=== PATIENT | female | born 2005 | race Caucasian/White ===

== ENCOUNTER 2024-06-03 15:39 | Outpatient (CLI) | payer OTHER, SELFPAY ==
[2024-06-03 16:08] LABS: Basophils Percent Auto 0.6 % (0.2-1.2); Eosinophils Percent Auto 0.5 % (0-4.4); Hematocrit 40.4 % (37.0-47.0); Hemoglobin 13.7 g/dL (12.0-15.0); Immature Granulocyte Absolute 0.02 K/mm3 (0.00-0.031); Immature Granulocyte Percent A 0.3 % (0-0.5); Lymphocytes Absolute Auto 2.02 K/mm3 (0.9-3.2); Lymphocytes Percent Auto 30.7 % (18.3-44.2); Mean Corpuscular HGB Conc 33.9 g/dl (32-36); Mean Corpuscular Hemoglobin 29.4 pg (26-34); Mean Corpuscular Volume 86.7 fl (80-100); Monocytes Absolute Auto 0.4 K/mm3 (0.1-0.6); Monocytes Percent Auto 5.8 % (2.6-8.5); Neutrophils Absolute Auto 4.1 K/mm3 (1.3-6.7); Neutrophils Percent Auto 62.1 % (45.5-73.1); Platelet Count Result 246 k/mm3 (150-375); Red Blood Count 4.66 M/mm3 (4.2-5.4); Red Cell Distribution Width 12.9 % (11.5-14.5); White Blood Count 6.6 K/mm3 (4.5-10.0)
[2024-06-03 16:59] LABS: HIV 1/2 Ab P24 Ag Result Negative (Negative)
[2024-06-03 18:15] LABS: Hepatitis B Surface Antigen Negative (Negative); Rubella IgG Antibody 96.4 IU/ML
[2024-06-04 08:14] LABS: Rapid Plasma Reagin Non-Reactive (NonReactive)
[2024-06-05 03:19] LABS: CMV IgG Antibody <0.60 U/mL
== END 2024-06-03 15:40 | disposition home or self-care (01) ==
LOC: ANHLAB 15:40
PROVIDERS: Visit Provider Obstetrics & Gynecology
DX: N94.89 Other specified conditions associated with female genital organs and menstrual cycle (principal)
CPT/HCPCS: 36415; 84702; 85025; 86592; 86644; 86703; 86747; 86762; 86850; 86900; 86901; 87340; G0432

== ENCOUNTER 2024-10-14 12:05 | Outpatient (CLI) | payer OTHER, MEDICAID, SELFPAY ==
--- OUTSIDE RECORDS SUMMARY | 2024-10-14 12:11 | XMS_ITS | Clinical Summary ---
Author Organization [facility] Address [address] [place] [address] Phone Care Team Providers Care [facility] Workers Supervisor Name Role Phone Meghan Cedillo MD Primary Care Provider + Allergies No known active allergies Medications venlafaxine (EFFEXOR) 37.5 mg tablet Take 37.5 mg by mouth 3 times daily. Active Family History Medical History Relation Name Comments No Known Problems Father No Known Problems Mother Relation Name Status Comments Father Mother Social History Tobacco Use Types Packs/Day Years Used Date Smoking Tobacco: Never Adolescent Education Answer Date Record ed Getting School Help Needed Not on file 12/23 Comments Unknown Sex and Gender Information Value Date Recorded Sex Assigned at Not on file Legal Sex Female 6:09 PM CDT Gender Identity Not on file Sexual Orientation Not on file Last Filed Vital Signs Vital Sign Reading Time Taken Comments Blood Pressure 112/70 08/16/2021 9:30 PM CDT Pulse 82 08/16/2021 9:30 PM CDT Temperature 36.9 C (98.4 F) 08/16/2021 9:30 PM CDT Respiratory Rate 17 08/16/2021 9:30 PM CDT Oxygen Saturation 99% 08/16/2021 9:30 PM CDT Inhaled Oxygen Concentration - - Weight 61.3 kg (135 lb 2.3 oz) 08/16/2021 6:19 P M CDT Height - - Body Mass Index - - Plan of Treatment Health Maintenance Due Date Last Done Comments CHLAMYDIA SCREENING (ANNUAL) 11-24 YEARS 02/18/2015 HPV VACCINES (1 - 3-dose series) 02/18/2019 DTAP/TDAP/TD VACCINES (1 - Tdap) 02/18/2023 HEPATITIS B VACCINES (1 of 3 - 19+ 3-dose series) 05/2022 INFLUENZA VACCINE (#1) 2023 Insurance [employer] CHOICE POS II AET[employer] CHOICE POS II Care Teams Cemetery Workers Supervisor Relationship Specialty Start Date End Date Meghan Cedillo MD PCP - General Pediatrics 08/16/21
--- OUTSIDE RECORDS SUMMARY | 2024-10-14 12:11 | XMS_ITS | Data Portability ---
Author Organization [place] [facility]- Address # [address] [facility] [place] [address] Care Team Providers Care Investment Executive Name Role Phone LETI CEDILLO Primary Care Provider [phone] Assessment Encounter Date Assessment Date Assessment LastModified by Organization Details LastModified Time 08/16/2021 08/16/2021 Due to the COVID-19 public health emergency, additional clinical staff time was required to screen this patient and parent(s) for COVID exposure and/or COVID related symptoms. Additional time was also spent sanitizing the exam room after the patient was seen in order to prevent the possible spread of COVID. Not available 08/16/2021 15:19:27 11/04/2021 11/04/2021 Due to the COVID-19 public health emergency, additional clinical staff time was required to screen this patient and parent(s) for COVID exposure and/or COVID related symptoms. Additional time was also spent sanitizing the exam room after the patient was seen in order to prevent the possible spread of COVID. [email or web address] Not available 11/02/2021 14:11:54 03/30/2022 03/30/2022 Due to the COVID-19 public health emergency, additional clinical staff time was required to screen this patient and parent(s) for COVID exposure and/or COVID related symptoms. Additional time was also spent sanitizing the exam room after the patient was seen in order to prevent the possible spread of COVID. Not available 03/30/2022 14:22:07 Plan of Treatment Reminders Order Date Submit Date Provider Last Modified By Organization Details Last Modified Time Details Appointments None recorded. Lab urinalysis, dipstick 2024 025 JACQUELYN [facility], [address], [place], [address], 5 12:48:50 rapid strep group A, throat 2021 022 [email or web address] [facility], [address], [place], [address], 2 15:30:24 urinalysis, dipstick 2021 022 [email or web address] [facility], [address], [place], [address], 16:03:49 Referral None recorded. Procedures None recorded. Surgeries None recorded. Imaging None recorded. Medication Orders venlafaxine 25 mg tablet 2021 022 [email or web address] 3 Not available 5 14:19:48 Patient TargetsNo targets recorded. Patient Instructions Encounter Date Encounter Id Patient Instructions Last Modified By Organization Details Last Modified Time 08/16/2021 [id number] screen for child anxiety-related emotional disorders* [email or web address] Not available 08/16/2021 15:48:59 patient health questionnaire depression assessment* ahauch Not available 08/16/2021 15:48:59 screen for child anxiety-related emotional disorders* ahauch Not available 08/16/2021 15:48:59 Instructions 1. Take medication(s) exactly as prescribed. 2. Never stop taking your medicine on your own--it can lead to serious problems. 3. Strongly consider speaking with a counselor. 4. Tell someone if you have any thoughts of self harm. 5. Contact our office with any concerns. 5. Follow up in month(s). Goals 1. Improved socialization at school, work, and/or with family. 2. Always go to school unless you are truly unable. 3. Always maintain normal sleep time patterns. Not available 08/16/2021 15:19:27 11/04/2021 [id number] anticipatory guidance 16-17 years Not available 11/04/2021 16:03:50 laurita LARA e abuse screening for adolescents* Not available 11/16/2021 14:39:01 patient health questionnaire depression assessment* JACQUELYN Not available 11/06/2021 08:24:15 03/30/2022 [id number] sore throat in teens: care instructions [email or web address] Not available 03/30/2022 15:30:24 06/23/2024 [id number] anticipatory guidance 18-21 years [email or web address] Not available 06/23/2024 12:22:20 patient health questionnaire depression assessment* [email or web address] Not available 06/23/2024 12:22:20 Reason for Referral None Reported. Results Created Date Observation Date Name Description Value Unit Range Abnormal Flag Note LastModifiedBy Organization Detail LastModifiedTime 08/10/1908/09/2021 patie nt healt h quest ionna virgen depre ssion asses sment * SCORE: 24 Not Available [facility] [address] [facility] [address], [place], [address], 08/09/2021 17:28:32 08/10/19 22 08/09/2021 patie nt healt h quest ionna virgen depre ssion asses sment * RECOMMENDATI ONS: DISCUS SED WITH PARENT NEED FOR FOLLOW UP TREATM ENT AND EVALUA TION Not Available [facility] [address] [facility] [address], [place], [address], 08/09/2021 17:28:32 08/10/19 22 08/09/2021 scree n for child anxie ty-re lated emoti onal disor ders* Unknown Analyte 55 Not Available [facility] [address] [facility] [address], [place], [address], 08/09/2021 17:28:33 08/10/19 22 08/09/2021 scree n for child anxie ty-re lated emoti onal disor ders* Unknown Analyte abnorm al Not Available [facility] [address] [facility] [address], [place], [address], 08/09/2021 17:28:33 08/17/19 22 08/16/2021 scree n for child anxie ty-re lated emoti onal disor ders* Unknown Analyte 55 Not Available [facility] [address] [facility] [address], [place], [address], 08/16/2021 15:19:29 08/17/19 22 08/16/2021 scree n for child anxie ty-re lated emoti onal disor ders* Unknown Analyte abnorm al Not Available [facility] [address] [facility] [address], [place], [address], 08/16/2021 15:19:29 08/17/19 22 08/16/2021 scree n for child anxie ty-re lated emoti onal disor ders* Unknown Analyte 7 Not Available [facility] [address] [facility] [address], [place], [address], 08/16/2021 15:19:29 08/17/19 22 08/16/2021 scree n for child anxie ty-re lated emoti onal disor ders* Unknown Analyte normal Not Available [facility] [address] [facility] [address], [place], [address], 08/16/2021 15:19:29 08/17/19 22 08/16/2021 patie nt healt h quest ionna virgen depre ssion asses sment * SCORE: 24 Not Available [facility] [address] [facility] [address], [place], [address], 08/16/2021 15:19:29 08/17/19 22 08/16/2021 patie nt healt h quest ionna virgen depre ssion asses sment * RECOMMENDATI ONS: DISCUS SED WITH PARENT NEED FOR FOLLOW UP TREATM ENT AND EVALUA TION Not Available [facility] [address] [facility] [address], [place], [address], 08/16/2021 15:19:29 11/05/19 22 11/04/2021 urina lysis , dipst ick Specific Rembert >1.030 Not Available [facility] [address] [facility] [address], [place], [address], 11/02/2021 14:11:55 11/05/19 22 11/04/2021 urina lysis , dipst ick pH 6.0 Not Available [facility] [address] [facility] [address], [place], [address], 11/02/2021 14:11:55 11/05/19 22 11/04/2021 urina lysis , dipst ick Leukocytes Negati ve Not Available [facility] [address] [facility] [address], [place], [address], 11/02/2021 14:11:55 11/05/19 22 11/04/2021 urina lysis , dipst ick Nitrite negati ve Not Available [facility] [address] [facility] [address], [place], [address], 11/02/2021 14:11:55 11/05/19 22 11/04/2021 urina lysis , dipst ick Urobilinogen .2 Not Available [facility] [address] [facility] [address], [place], [address], 11/02/2021 14:11:55 11/05/19 22 11/04/2021 urina lysis , dipst ick Protein Negati ve Not Available [facility] [address] [facility] [address], [place], [address], 11/02/2021 14:11:55 11/05/19 22 11/04/2021 urina lysis , dipst ick Blood Negati ve Not Available [facility] [address] [facility] [address], [place], [address], 11/02/2021 14:11:55 11/05/19 22 11/04/2021 urina lysis , dipst ick Ketone Negati ve Not Available [facility] [address] [facility] [address], [place], [address], 11/02/2021 14:11:55 11/05/19 22 11/04/2021 urina lysis , dipst ick Bilirubin Negati ve Not Available [facility] [address] [facility] [address], [place], [address], 11/02/2021 14:11:55 11/05/19 22 11/04/2021 urina lysis , dipst ick Glucose Negati ve Not Available [facility] [address] [facility] [address], [place], [address], 11/02/2021 14:11:55 11/05/19 22 11/04/2021 urina lysis , dipst ick Appearance Clear Not Available [facility] [address] [facility] [address], [place], [address], 11/02/2021 14:11:55 11/05/19 22 11/04/2021 urina lysis , dipst ick Color Yellow Not Available [facility] [address] [facility] [address], [place], [address], 11/02/2021 14:11:55 11/07/19 22 11/06/2021 patie nt healt h quest ionna virgen depre ssion asses sment * SCORE: 1 Not Available [facility] [address] [facility] [address], [place], [address], 11/02/2021 14:11:56 11/07/19 22 11/06/2021 patie nt healt h quest ionna virgen depre ssion asses sment * RECOMMENDATI ONS: NORMAL PHQ-9 SCORE, NO FURTHE R TREATM ENT REQUIR ED Not Available [facility] [address] [facility] [address], [place], [address], 11/02/2021 14:11:56 11/17/19 22 11/16/2021 CRAFF T, subst ance abuse scree michael for adole scent s* Recommendati ons: Normal CRAFFT score- no furthe r treatm ent requir ed Not Available [facility] [address] [facility] [address], [place], [address], 11/02/2021 14:11:56 03/30/20 22 04/02/2022 CULTU RE, THROA T culture, throat SEE NOTE CULTU RE, THROA T Micro Numbe r: [id number] Test Statu s: Final Speci men Sourc e: Throa t Speci men Quali ty: Adequ ate Resul t: No oroph aryng eal patho gens recov ered. Not Available [facility] [id number] [place], [address], 04/02/2022 01:16:37 03/30/20 22 03/30/2022 rapid strep group A, throa t Result negati ve Not Available [facility] [address] [facility] [address], [place], [address], 03/30/2022 15:16:44 06/23/19 25 06/23/2024 urina lysis , dipst ick Specific Rembert >1.030 Not Available [facility] [address] [facility] [address], [place], [address], 06/23/2024 12:03:10 06/23/19 25 06/23/2024 urina lysis , dipst ick pH 5.0 Not Available [facility] [address] [facility] [address], [place], [address], 06/23/2024 12:03:10 06/23/19 25 06/23/2024 urina lysis , dipst ick Leukocytes Negati ve Not Available [facility] [address] [facility] [address], [place], [address], 06/23/2024 12:03:10 06/23/19 25 06/23/2024 urina lysis , dipst ick Nitrite negati ve Not Available [facility] [address] [facility] [address], [place], [address], 06/23/2024 12:03:10 06/23/19 25 06/23/2024 urina lysis , dipst ick Urobilinogen 1 Not Available [facility] [address] [facility] [address], [place], [address], 06/23/2024 12:03:10 06/23/19 25 06/23/2024 urina lysis , dipst ick Protein Trace Not Available [facility] [address] [facility] [address], [place], [address], 06/23/2024 12:03:10 06/23/19 25 06/23/2024 urina lysis , dipst ick Blood Negati ve Not Available [facility] [address] [facility] [address], [place], [address], 06/23/2024 12:03:10 06/23/19 25 06/23/2024 urina lysis , dipst ick Ketone Large (160) Not Available [facility] [address] [facility] [address], [place], [address], 06/23/2024 12:03:10 06/23/19 25 06/23/2024 urina lysis , dipst ick Bilirubin Small Not Available [facility] [address] [facility] [address], [place], [address], 06/23/2024 12:03:10 06/23/19 25 06/23/2024 urina lysis , dipst ick Glucose Negati ve Not Available [facility] [address] [facility] [address], [place], [address], 06/23/2024 12:03:10 06/23/19 25 06/23/2024 urina lysis , dipst ick Appearance Clear Not Available [facility] [address] [facility] [address], [place], [address], 06/23/2024 12:03:10 06/23/19 25 06/23/2024 urina lysis , dipst ick Color Yellow Not Available [facility] [address] [facility] [address], [place], [address], 06/23/2024 12:03:10 06/23/19 25 06/23/2024 patie nt healt h quest ionna virgen depre ssion asses sment * SCORE: 5 Not Available [facility] [address] [facility] [address], [place], [address], 06/23/2024 12:03:10 06/23/1906/23/2024 patie nt healt h quest ionna virgen depre ssion asses sment * RECOMMENDATI ONS: NORMAL PHQ-9 SCORE, NO FURTHE R TREATM ENT REQUIR ED Not Available [facility] [address] [place] [address] [address], [place], [address], 06/23/2024 12:03:10 Result Notes None recorded. 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 Active 2020 Leti Cedillo MD [address] [place] [address], [phone] 3, [facility], 1 14:03:33 Viral infection by site Completed 06/22/2016 Leti Cedillo MD [address] [place] [address], [phone] 3, [facility], 7 11:06:02 Fever 058299140 Completed 06/22/2016 Leti Cedillo MD [address] [place] [address], 409[address] 3, [facility], 7 11:06:06 Acute pharyngitis 482900316 Completed 06/22/2016 Leti Cedillo MD [address] [place] [address], [phone], [facility], 7 11:06:04 Influenza with respiratory manifestati on other than pneumonia Completed 06/22/2016 Leti Cedillo MD [address] [place] [address], [phone] 3, [facility], 7 11:06:12 Acute suppurative otitis media without spontaneous rupture of ear drum 42067644 Completed 06/22/2016 Leti Cedillo MD [address] [place] [address] [place] [address], 312[address], [facility], 7 11:05:56 No current problems or disability 688289687 [facility] 09:19:55 Folliculiti s 37367977 Completed 03/19/2018 [facility] 09:19:53 Upper respiratory infection 77326649 Completed 06/22/2016 Leti Cedillo MD [address] [place] [address] [place] [address], [phone], [facility], [facility] 11:06:09 Common cold 88111913 Completed 06/22/2016 Leti Cedillo MD [address] [place] [address] [place] [address], 316[address] 3, [facility], [facility] 11:06:14 Conjunctivi tis 3264570 Completed 06/22/2016 Leti Cedillo MD [address] [place] [address] [place] [address], [phone] 3, [facility], [facility] 11:06:16 Non-suppura tive otitis media 950108128 Completed 06/22/2016 Leti Cedillo MD [address] [place] [address] [place] [address], [phone] 3, [facility], 7 11:05:59 Problem Notes None recorded. Procedures Surgical History Date Name Laterality Status Provider Name and Address Organization Details Recorded Time Appendectomy completed Breanna Cramer [facility], 08/21/2023 15:32:32 Imaging Results None recorded. Procedure Notes None recorded. Medical Equipment None Reported. Allergies No known drug allergies Medications Name Sig Start Date Stop Date Status Note LastModified by Organization Details LastModified Time amoxicillin 500 mg capsule TAKE 1 CAPSULE BY MOUTH 3 TIMES A DAY UNTIL GONE 01/31 completed Not Available Not Available Not Available venlafaxine ER 37.5 mg capsule,ext ended release 24 hr TAKE 1 CAPSULE BY MOUTH FOR ONE WEEK THEN INCREASE TO 2 CAPSULES DAILY BY MOUTH 05/28 completed Not Available Not Available Not Available venlafaxine ER 75 mg capsule,ext ended release 24 hr TAKE 1 CAPSULE BY MOUTH EVERY DAY 05/28 completed Not Available Not Available Not Available Vitamin B-6 25 mg tablet 25 MG ORALLY THREE TIMES A DAY 06/23 completed Not Available Not Available Not Available Lidocaine Viscous 2 % mucosal solution 05/28 completed Not Available Not Available Not Available hydrocodone 5 mg-acetamin ophen 325 mg tablet TAKE 1 TABLET BY MOUTH EVERY 6 HOURS FOR UP TO 7 DAYS NEEDED FOR PAIN 05/28 completed Not Available Not Available Not Available venlafaxine 25 mg tablet Take 1 tablet every day by oral route for 7 days. 05/28 completed Not Available Not Available Not Available ondansetron HCl 4 mg tablet 06/23 completed Not Available Not Available Not Available penicillin V potassium 500 mg tablet TAKE 1 TABLET BY MOUTH TWICE A DAY FOR 10 DAYS 05/28 completed Not Available Not Available Not Available triamcinolo ne acetonide 0.1 % topical cream Apply a thin layer to the affected area(s) by topical route 2 times per day 2013 active Not Available Not Available Not Avai lable erythromyci n 250 mg tablet TAKE 1 TABLET BY MOUTH EVERY 6 HOURS X 10 DAYS 05/28 completed Not Available Not Available Not Available amoxicillin 875 mg tablet Take 1 tablet every 12 hours by oral route for 10 days. 11/30 completed Not Available Not Available Not Available antipyrine- benzocaine 5.4 %-1.4 % ear drops Instill 3 drops every 3-4 hours by otic route as needed. 2013 active Not Available Not Available Not Avai lable venlafaxine 37.5 mg tablet TAKE 1 TAB BY MOUTH TWICE DAILY FOR ONE WEEK THEN INCREASE TO 2 TABS BY MOUTH TWICE DAILY 05/28 completed Not Available Not Available Not Available Zithromax 200 mg/5 mL oral suspension 10/05 completed Not Available Not Available Not Available oseltamivir 75 mg capsule 08/30 completed Not Available Not Available Not Available fluoxetine 20 mg tablet Take 1 tablet every day by oral route for 90 days. 08/09 completed Not Available Not Available Not Available docusate sodium 100 mg capsule TAKE ONE CAPSULE BY MOUTH TWICE DAILY FOR 14 DAYS 05/28 completed Not Available Not Available Not Available amoxicillin 400 mg/5 mL oral suspension Take 7.5 mL every 12 hours by oral route for 10 days. 01/24 completed Not Available Not Available Not Available mupirocin 2 % topical ointment Apply by topical route to affected area twice daily for 7 days 2013 active Not Available Not Available Not Avai lable ondansetron 4 mg disintegrat ing tablet DISSOLVE 1 TABLET ON THE TONGUE EVERY 6 HOURS NEEDED FOR NAUSEA AND VOMITING 06/23 completed Not Available Not Available Not Available Tamiflu 12 mg/mL oral suspension Take 5 mL every day by oral route for 10 days. 08/13 completed Not Available Not Available Not Available fluticasone propionate 50 mcg/actuati on nasal spray,suspe nsion ONE spray to each nostril daily 05/28 completed Not Available Not Available Not Available hydroxyzine pamoate 25 mg capsule TAKE 1 OR 2 CAPSULES BY MOUTH AT AT BEDTIME FOR INSOMNIA 11/04 completed Not Available Not Available Not Available neomycin-po lymyxin-hyd rocort 3.5 mg-10,000 unit/mL-1 % ear drops,susp 11/30 completed Not Available Not Available Not Available norelgestro min 150 mcg-e.estra diol 35 mcg/24 hr weekly transderm patch APPLY PATCH EVERY 7 DAYS IN A CONTINUOU S MANNER SKIPPING CYCLES 05/28 completed Not Available Not Available Not Available escitalopra m 10 mg tablet TAKE 1/2 TAB (5MG) BY MOUTH DAILY FOR 4 DAYS THEN 1 TABLET BY MOUTH DAILY FOR 8 DAYS 08/09 completed Not Available Not Available Not Available Senna Plus 8.6 mg-50 mg tablet TAKE 1 TABLET BY MOUTH EVERY DAY 05/28 completed Not Available Not Available Not Available Ciprodex 0.3 %-0.1 % ear drops,suspe nsion Instill 4 drops into affected ear(s) 2 times per day for 7 days 2011 active Not Available Not Available Not Avai lable escitalopra m 5 mg tablet Take 1 tablet PO daily for 4 days then 2 tablets daily PO 08/09 completed Not Available Not Available Not Available Zyrtec 11/30 completed Not Available Not Available Not Available Moxeza 0.5 % eye drops Instill 1 drop twice a day by ophthalmi c route for 7 days. 10/05 completed Not Available Not Available Not Available Tamiflu 6 mg/mL oral suspension Take 5 mL twice a day by oral route for 5 days. 06/01 completed Not Available Not Available Not Available Vitals Date Recorded Body weight Body temperature Heart rate Respiratory rate Provider Name and Address Organization Details Last Updated DateTime 05/28/2024 63555.45 g 98.2 [degF] 112 /min 16 /min [facility] 14:18:13 Date Recorded Body weight Body temperature Heart rate Respiratory rate Body mass index (BMI) Percentile per age and sex Body mass index (BMI) Body height Systolic And Diastolic Provider Name and Address Organization Details Last Updated DateTime 5 15219.2 6 g 98.2 [degF] 88 /min 16 /min 73 % 24.2 kg/m2 167.01 cm 110/70 mm[Hg] [facility], 5 12:04:35 Date Recorded Body weight Body temperature Heart rate Respiratory rate Provider Name and Address Organization Details Last Updated DateTime 08/16/2021 67774.15 g 98.1 [degF] 108 /min 18 /min [facility], 08/16/2021 15:36:16 Date Recorded Body weight Body mass index (BMI) Body mass index (BMI) Percentile per age and sex Body height Heart rate Respiratory rate Systolic And Diastolic Provider Name and Address Organization Details Last Updated DateTime 2 06374.1 9 g 21.5 kg/m2 54 % 167.01 cm 96 /min 20 /min 114/78 mm[Hg] Shanice elder [facility], 2 15:13:06 Date Recorded Systolic And Diastolic Provider Name and Address Organization Details Last Updated DateTime 03/30/2022 98/70 mm[Hg] Leti Cedillo MD [address] [place] [address] [address], [place], [address], [facility], 03/30/2022 15:12:16 Date Recorded Body temperature Heart rate Respiratory rate Body weight Provider Name and Address Organization Details Last Updated DateTime 03/30/2022 98.8 [degF] 120 /min 20 /min 81188.93 g Shanice Bender [facility], 14:50:18 Social History Question Answer Notes LastModified by Organizat ion Details LastModified Time Tobacco Smoking Status Never Smoker Clarisse gee, [place] [facility], 03/19/2018 09:12:53 How Many Years Have You Consumed Alcohol? 0 [email or web address] Information not available 03/19/2018 Animal Exposure? Yes Informat ion not available 11/26/2015 Are You Blind Or Do You Have Difficulty Seeing? No [email or web address] Information not available 03/19/2018 What Is Your Level Of Caffeine Consumption? Occasional [email or web address] Information not available 03/19/2018 Concerns About Meeting Basic Needs (food, Housing, Heat, Etc)? No [email or web address] Information not available 03/19/2018 Are You Deaf Or Do You Have Serious Difficulty Hearing? No [email or web address] Information not available 03/19/2018 Are You At Moderate Or High Risk For Dental Cavities? No [email or web address] Information not available 03/19/2018 What Type Of Diet Are You Following? REGULAR Information not available 03/19/2018 Does Family Ever Have Difficulty Making Ends Meet At The End Of The Month? No [email or web address] Information not available 03/19/2018 Which Illicit Or Recreational Drugs Have You Used? Denies Information not available 03/19/2018 What Is The Highest Grade Or Level Of School You Have Completed Or The Highest Degree You Have Received? [id number] [email or web address] Information not available 06/23/2024 Who Is Your Employer? [employer] [email or web address] Information not available 06/23/2024 Have There Been Any Changes To Your Family Or Social Situation? No [email or web address] Information not available 03/19/2018 What Is The Fluoride Status Of Your Home? Fluoridated [email or web address] Information not available 03/19/2018 Are There Any Guns Present In Your Home? Yes Locked Up Information not available 11/04/2021 Hard Of Hearing Or Deaf In One Or Both Ears? No [email or web address] Information not available 03/19/2018 What Is Your Home Situation? Other Lives On Her Own. [email or web address] Information not available 06/23/2024 How Many Years Have You Used Illicit Or Recreational Drugs? 0 [email or web address] Information not available 03/19/2018 Do You Use Insect Repellent Routinely? Yes Information not available 11/26/2015 Legally Blind In One Or Both Eyes? No [email or web address] Information not available 03/19/2018 What Was The Date Of Your Most Recent Tobacco Screening? 06/23/2024 [email or web address] Information not available 06/23/2024 Family Has Moved Frequently/lived With Others Due To Finances Within The Last Year? No [email or web address] Information not available 03/19/2018 What Is Your Parents' Marital Status? Information not available 11/26/2015 Do You Have Any Pets? Yes Information not available 11/04/2021 Do You Use Your Seat Belt Or Car Seat Routinely? Yes Information not available 11/26/2015 Do You Have Any Siblings? 1 Sister Information not available 11/26/2015 Do You Have Smoke And Carbon Monoxide Detectors In Your Home? Yes Information not available 11/26/2015 Are You Passively Exposed To Smoke? No Information not available 11/26/2015 Are There Any Smokers In Your House? Yes Smokes Outside [email or web address] Information not available 11/04/2021 Do You Participate In Social Media? No [email or web address] Information not available 03/19/2018 General Stress Level Low [email or web address] Information not available 03/19/2018 Do You Use Sunscreen Routinely? Yes Information not available 11/26/2015 Year In School HS Grad Informatio n not available 06/23/2024 Sex: Unknown Functional Status Question Answer Note LastModified by Organizat ion Details LastModified Time Do you use any illicit or recreational drugs? No [email or web address] Information not available 06/23/2024 Do you or have you ever used any other forms of tobacco or nicotine? No [email or web address] Information not available 06/23/2024 What is your level of alcohol consumption? None [email or web address] Information not available 03/19/2018 Are you currently employed? Yes Information not available 11/04/2021 What is your exercise level? Moderate Information not available 11/26/2015 Mental Status Question Answer Note LastModified by Organization D etails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
--- OUTSIDE RECORDS SUMMARY | 2024-10-14 12:11 | XMS_ITS | Clinical Summary ---
Author Organization [facility] [employer] Address [address] [place] [address] Care Team Providers Care Soda Fountain Operator Name Role Phone Meghan Jarrett MD Primary Care Provider [phone] Source Comments [facility] [employer],non-owned Affiliates and Associated Physician Practices is amultiple site organization consisting of ambulatory clinics and hospital sitesin [place], [place], [place] and [place]. This disclosure is being madepursuant to the Care Everywhere program and may not contain all information available regarding this patient. Last updated 18.[facility] [employer] Allergies No known active allergies Medications * Be aware that medications may not be up to date on this document. Alwaysverify current medications with the patient. 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 Gender Identity Not on file Sexual Orientation Not on file Last Filed Vital Signs Vital Sign Reading Time Taken Comments Blood Pressure - - Pulse - - Temperature - - Respiratory Rate - - Oxygen Saturation - - Inhaled Oxygen Concentration - - Weight 56.7 kg (125 lb) 05/01/2017 2:13 PM SUPERVISOR ELECTRONIC TESTING Height 167.5 cm (5' 5.95) 05/01/2017 2:13 PM CS T Body Mass Index 20.21 05/01/2017 2:13 PM SUPERVISOR ELECTRONIC TESTING Plan of Treatment Health Maintenance Due Date Last Done Comments HIV SCREENING 02/18/2019 HPV VACCINE (1 - 3-dose series) 02/18/2019 CHLAMYDIA/GONORRHEA SCREENING 2020 MENINGOCOCCAL (Group B) VACC INE SHARED DECISION-MAKING (1 of 2 - Standard) 2020 HEPATITIS C SCREENING 02/14/2022 DTAP/TDAP/TD VACCINES (1 - Tdap) 02/18/2023 HEPATITIS B VACCINE (1 of 3 - 19+ 3-dose series) 02/18/2023 COVID-19 VACCINE (1 - 2023-2 5 season) 2024 DEPRESSION SCREENING 05/21/2024 INFLUENZA VACCINE (Season Ended) 2025 ZOSTER VACCINE (1 of 2) 02/18/2054 HIB VACCINE Aged Out No longer eligi ble based on patient's age to complete this topic MENINGOCOCCAL GROUPS A/C/Y/W VACCINE Aged Out No longer eligible b ased on patient's age to complete this topic PNEUMOCOCCAL VACCINE Aged Out No long er eligible based on patient's age to complete this topic Insurance AETNA Care Teams Soda Fountain Operator Relationship Specialty Start Date End Date Meghan Jarrett MD PCP - General Pediatrics 05/01/17
--- OUTSIDE RECORDS SUMMARY | 2024-10-14 12:11 | XMS_ITS | Referral Summary ---
Author Organization [facility] Address [address] [place] [address] Care Team Providers Care Bioengineer Name Role Phone Meghan Cedillo MD Primary Care Provider + Encounters Date Type Department Care Team Description 09/28/2024 5:30 PM CDT Office Visit [facility] at [address] [place] [phone] Neris Rodriguez, JERAD Sore throat (Primary Dx) from Last 3 Months Allergies No known active allergies Medications docusate sodium (Colace) 100 mg capsuleIndicati ons:constipatio n Take 1 capsule (100 mg total) by mouth 2 (two) times a day for 14 days 28 capsule 4 Active Xulane 150-35 mcg/24 hr APPLY PATCH EVERY 7 DAYS IN A CONTINUOUS MANNER SKIPPING CYCLES 4 Active senna-docusate (PERICOLACE) 8.6-50 mgIndications:c onstipation Take 1 tablet by mouth daily 30 tablet 4 Active vitamin B-6 25 mg tablet 25 MG ORALLY THREE TIMES A DAY 5 Active Active Problems Problem Noted Date Diagnosed Date S/P laparoscopic appendectomy 08/21/2023 Acute appendicitis with loca lized peritonitis, without perforation, abscess, or gangrene 08/14/2023 Closed nondisplaced fracture of proximal phalanx of right ring finger 05/01/2017 Social History Tobacco Use Types Packs/Day Years Used Date Smoking Tobacco: Never Smokeless Tobacco: Never Personal Safety Answer Date Recorded Have you ever been in or are you currently in a harmful physical or emotional relationship or is someone making you feel afraid or unsafe? 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 Gender Identity Not on file Sexual Orientation Not on file Last Filed Vital Signs Vital Sign Reading Time Taken Comments Blood Pressure 102/58 09/28/2024 4:35 PM CDT Pulse 111 09/28/2024 4:35 PM CDT Temperature 36.6 C (97.9 F) 09/28/2024 4:35 PM CDT Respiratory Rate 16 09/28/2024 4:35 PM CDT Oxygen Saturation 98% 09/28/2024 4:35 PM CDT Inhaled Oxygen Concentration - - Weight 78 kg (172 lb) 09/28/2024 4:35 PM CDT Height 167.6 cm (5' 6) 09/28/2024 4:35 PM CDT Body Mass Index 27.76 09/28/2024 4:35 PM CDT Plan of Treatment Not on file Procedures Procedure Name Priority Date/Time Associated Diagnosis Comments POC INFLUENZA A/B, COVID-19 ANTIGEN Routine 09/28/2024 5:02 PM CDT Sore throat POCT RAPID STREP Routine 09/28/2024 5:02 PM CDT Sore throat from Last 3 Months Results * POC Influenza A/B, COVID-19 antigen (09/28/2024 5:02 PM CDT) Influenza A Ag, POC Negative Negative [facility] Influenza B Ag, POC Negative Negative [facility] COVID-19 Ag POC Presumptive Negative Presumptive Negative, Invalid [facility] Nasal 09/28/2024 5:02 PM CDT us Neris Rodriguez BASKET OPERATOR POINT OF CARE TEST OR DERABLES Final Result [facility] [place] [id number] [facility] [address] [place] [phone] * POCT rapid strep A (09/28/2024 5:02 PM CDT) Rapid Strep A, POC Negative Negative Swab 09/28/2024 5:02 PM CDT Result [facility] Neris Rodriguez BASKET OPERATOR POINT OF CARE TEST OR DERABLES Final Result from Last 3 Months Insurance [facility] HMO [facility] CHOICE PLUS [facility] CHOICE PLUS AETNA [facility] HMO [employer] HE[employer]CARE PPO Advance Directives For more information, please contact: [phone] * Full Code (Latest Code Status on File) Date Activated Date Inactivated Comments 08/14/2023 9:39 PM 08/16/2023 12:26 AM Care Teams Bioengineer Relationship Specialty Start Date End Date Meghan Cedillo MD PCP - General Pediatrics 11/22/16
--- OUTSIDE RECORDS SUMMARY | 2024-10-14 12:11 | XMS_ITS | Clinical Summary ---
Author Organization [facility] Address [address] [place] [address] Care Team Providers Care Utilization Review Coordinator Name Role Phone Meghan Cedillo MD Primary Care Provider + Allergies No known active allergies Medications docusate [...] proximal phalanx of right ring finger 05/01/2017 Encounters Date Type Department Care Team Description 09/28/2024 5:30 PM CDT Office Visit [facility] at [address] [place] [phone] Neris Rodriguez NP Sore throat (Primary Dx) from Last 3 Months Surgical History Surgery Date Site/Laterality Comments OTHER SURGICAL HISTORY No pertinent surgical hx APPENDECTOMY 08/15/2023 Family History Medical History Relation Name Comments Hypertension Maternal Grandfather Hypertension Maternal Grandmother Cancer Other Relation Name Status Comments Maternal Grandfather Maternal Grandmother Other Social History Tobacco Use Types Packs/Day Years [...] on file 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 Gender Identity Not on file Sexual Orientation Not on file Obstetrics History Last Filed Vital Signs Vital Sign Reading [...] 09/28/2024 4:35 PM CDT Plan of Treatment Health Maintenance Due Date Last Done Comments Hepatitis C Screening 2004 Depression Screening 10/30/2018 10/30/2017 Meningococcal B Vaccine (1 o f 2 - Standard) 2020 Regular Well Visit/Exam 18-64 02/18/2022 Influenza Vaccine (Season Ended) 2025 03/11/20 09 DTaP/Tdap/Td Vaccine (7 - Td or Tdap) 11/25/2025 11/26/2015, 03/11/2009, 08/25/2005, Additional history exists Hepatitis B Screening Completed 2004 , 2004, 2004, Additional history exists Pneumococcal vaccine <65 Completed 006, 08/25/2005, 2004, Additional history exists Varicella Vaccines Completed 03/11/2009, 02/20/2005 HPV Vaccines Completed 11/04/2021, 10/21/2018 Meningococcal Vaccine Completed 11/04/2021, 016 Procedures Procedure Name Priority Date/Time Associated Diagnosis Comments POC INFLUENZA A/B, COVID-19 ANTIGEN Routine 09/28/2024 5:02 PM CDT Sore throat POCT RAPID STREP Routine 09/28/2024 5:02 PM CDT Sore throat from Last 3 Months Results * POC Influenza A/B, COVID-19 antigen (09/28/2024 5:02 PM CDT) Influenza A Ag, POC Negative Negative [facility] Influenza B Ag, POC Negative Negative [facility] COVID-19 Ag POC Presumptive Negative Presumptive Negative, Invalid [facility] Nasal 09/28/2024 5:02 PM CDT Neris Rodriguez WOOD DOWEL MACHINE OPERATOR POINT OF CARE TEST OR DERABLES Final Result [address] [phone] * POCT rapid strep A (09/28/2024 5:02 PM CDT) Rapid Strep A, POC Negative Negative Swab 09/28/2024 5:02 PM CDT Neris Rodriguez WOOD DOWEL MACHINE OPERATOR POINT OF CARE TEST OR DERABLES Final Result from Last 3 Months Insurance AETNA [facility] HMO [facility] CHOICE PLUS [facility] CHO[facility] Advance Directives For more information, please contact: [phone] * Full Code (Latest Code Status on File) Date Activated Date Inactivated Comments 08/14/2023 9:39 PM 08/16/2023 12:26 AM Care Teams Utilization Review Coordinator Relationship Specialty Start Date End Date Meghan Cedillo MD PCP - General Pediatrics 11/22/16
--- OUTSIDE RECORDS SUMMARY | 2024-10-14 12:11 | XMS_ITS | Clinical Summary ---
Author Organization [facility] Address [address] [place] [phone] Phone Care Team Providers Care Legislative Aide Name Role Phone Provider, None Primary Care Provider Unavailabl e Allergies No known active allergies Medications No known medications Social History Tobacco Use Types Packs/Day Years Used Date Smoking Tobacco: Never Smokeless Tobacco: Never Alcohol Use Standard Drinks/Week Comments No 0 (1 standard drink = 0.6 oz pur e alcohol) Sexually Active Control Partners Comments Not Currently Comments Unknown Sex and Gender Information Value Date Recorded Sex Assigned at Not on file Legal Sex Female 11:34 PM CDT Gender Identity Not on file Sexual Orientation Not on file Last Filed Vital Signs Vital Sign Reading Time Taken Comments Blood Pressure 92/60 06/03/2017 11:27 AM MEXICAN FOOD MAKER HAND Pulse 100 06/03/2017 11:27 AM MEXICAN FOOD MAKER HAND Temperature 36.9 C (98.4 F) 06/03/2017 11:27 AM MEXICAN FOOD MAKER HAND Respiratory Rate - - Oxygen Saturation 98% 06/03/2017 11:27 AM MEXICAN FOOD MAKER HAND Inhaled Oxygen Concentration - - Weight 57.2 kg (126 lb) 06/03/2017 11:27 AM MEXICAN FOOD MAKER HAND Height 167.6 cm (5' 6) 06/03/2017 11:27 AM MEXICAN FOOD MAKER HAND Body Mass Index 20.34 06/03/2017 11:27 AM MEXICAN FOOD MAKER HAND Plan of Treatment Health Maintenance Due Date Last Done Comments Hepatitis C Virus (HCV) Screening 2004 TdaP Immunization 2004 Human Papillomavirus (HPV) Immunization (1 - 3-dose series) 02/18/2019 Meningococcal B Immunization (1 of 2 - Standard) 2020 Hepatitis B Immunization (1 of 3 - 19+ 3-dose series) 02/18/2023 Influenza Immunization (#1) 2024 SARS-COV-2 Immunization (2023-25 season) 2024 Respiratory Syncytial Virus (RSV) Immunization (Adult) (1 - 1-dose 75+ series) 02/18/2079 Meningococcal Immunization (ACWY) Aged Out No longer eligible based on patient's age to complete this topic Pneumococcal Immunization Combined Aged Out No longer eligible based on patient's age to complete this topic Rotavirus Immunization Aged Out No lo nger eligible based on patient's age to complete this topic Care Teams Legislative Aide Relationship Specialty Start Date End Date Provider, None [place] PCP - General 06/03/17
[2024-10-14 14:49] LABS: Glucose 1 Hour PP 50gm Dose 113 mg/dL
[2024-10-14 14:57] LABS: Basophils Percent Auto 0.3 % (0.2-1.2); Eosinophils Absolute Auto 0.1 K/mm3 (0-0.3); Eosinophils Percent Auto 0.7 % (0-4.4); Hematocrit 30.8 % (37.0-47.0); Hemoglobin 9.9 g/dL (12.0-15.0); Immature Granulocyte Absolute 0.07 K/mm3 (0.00-0.031); Immature Granulocyte Percent A 0.7 % (0-0.5); Lymphocytes Absolute Auto 1.59 K/mm3 (0.9-3.2); Lymphocytes Percent Auto 16.5 % (18.3-44.2); Mean Corpuscular HGB Conc 32.1 g/dl (32-36); Mean Corpuscular Hemoglobin 28.8 pg (26-34); Mean Corpuscular Volume 89.5 fl (80-100); Mean Platelet Volume 10.4 fl (7.4-10.4); Monocytes Absolute Auto 0.4 K/mm3 (0.1-0.6); Monocytes Percent Auto 4.6 % (2.6-8.5); Neutrophils Absolute Auto 7.5 K/mm3 (1.3-6.7); Neutrophils Percent Auto 77.2 % (45.5-73.1); Platelet Count Result 269 k/mm3 (150-375); Red Blood Count 3.44 M/mm3 (4.2-5.4); Red Cell Distribution Width 13.2 % (11.5-14.5); White Blood Count 9.7 K/mm3 (4.5-10.0)
== END 2024-10-14 12:06 | disposition home or self-care (01) ==
LOC: ANHLAB 12:09
PROVIDERS: Obstetrics & Gynecology; Referring Provider Obstetrics & Gynecology; Visit Provider Obstetrics & Gynecology
DX: Z34.90 Encounter for supervision of normal pregnancy, unspecified, unspecified trimester (principal); Z3A.00 Weeks of gestation of pregnancy not specified
CPT/HCPCS: 36415; 82947; 85025

== ENCOUNTER 2024-11-20 12:08 | Observation (INO) | payer OTHER, MEDICAID, SELFPAY ==
--- OUTSIDE RECORDS SUMMARY | 2024-11-20 12:38 | XMS_ITS | Clinical Summary ---
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 Influenza B Ag, POC Negative Negative [facility] COVID-19 Ag POC Presumptive Negative Presumptive Negative, Invalid [facility] Nasal 09/28/2024 5:02 PM CDT Neris Rodriguez STATISTICAL GENETICIST POINT OF CARE TEST OR DERABLES Final Result [address] [phone] * POCT rapid strep A (09/28/2024 5:02 PM CDT) Rapid Strep A, POC Negative Negative Swab 09/28/2024 5:0 2 PM CDT Neris Rodriguez STATISTICAL GENETICIST POINT OF CARE TEST OR DERABLES Final Result from Last 3 Months Insurance AETNA [facility] HMO [facility]PP[facility] Address: [address] [address] [place] [address] [facility] CHOICE PLUS [facility] H[facility]/PPO Address: [address] [address] [place] [id number] [facility] HMO Advance Directives For more information, please contact: [phone] * Full Code (Latest Code Status on File) Date Activated Date Inactivated Comments 08/14/2023 9:39 PM 08/16/2023 12:26 AM Care Teams Manufacturing Engineer Supervisor Relationship Specialty Start Date End Date Meghan Cedillo MD PCP - General Pediatrics 11/22/16
--- OUTSIDE RECORDS SUMMARY | 2024-11-20 12:38 | XMS_ITS | Data Portability ---
Author Organization [place] - [facility]- Address # [address] [place] [address] Care Team Providers Care Board Of Directors Name Role Phone LETI CEDILLO Primary Care Provider Assessment Encounter Date Assessment Date Assessment LastModified [...] Lab urinalysis, dipstick 2024 025 [email or web address] [facility], [address], [place], [address], 5 12:48:50 rapid strep group A, throat 2021 022 [email or web address] [facility], [address], [place], [address], 2 15:30:24 urinalysis, dipstick [email or web address] [facility] [address], [place], [address], 16:03:49 Referral None recorded. Procedures None recorded. Surgeries None recorded. Imaging None recorded. Medication Orders venlafaxine 25 mg tablet 2021 022 [email or web address] 3 Not available 5 14:19:48 Patient TargetsNo targets recorded. Patient Instructions Encounter Date Encounter Id Patient Instructions Last Modified By Organization Details Last Modified Time 08/16/2021 [id number] screen for child anxiety-related emotional disorders* [email or web address] [...] time patterns. Not available 08/16/2021 15:19:27 11/04/2021 [id number] anticipatory guidance 16-17 years Not available 11/04/2021 16:03:50 laurita LARA e abuse screening for adolescents* Not available 11/16/2021 14:39:01 patient health questionnaire depression assessment* JACQUELYN Not available 11/06/2021 08:24:15 03/30/2022 [id number] sore throat in teens: care instructions [email or web address] Not available 03/30/2022 15:30:24 06/23/2024 [id number] anticipatory guidance 18-21 years [email or web address] Not available 06/23/2024 12:22:20 patient health questionnaire depression assessment* ecrotchett Not available 06/23/2024 12:22:20 Reason for Referral None Reported. Results Created Date Observation Date Name Description Value Unit Range Abnormal Flag Note LastModifiedBy Organization Detail LastModifiedTime 08/10/1908/09/2021 patie nt healt h quest ionna virgen depre ssion asses sment * SCORE: 24 Not Available [facility] [address], [place], [address], 08/09/2021 17:28:32 08/10/19 22 08/09/2021 patie nt healt h quest ionna virgen depre ssion asses sment * RECOMMENDATI ONS: DISCUS SED WITH PARENT NEED FOR FOLLOW UP TREATM ENT AND EVALUA TION Not Available [facility] [address], [place], [address], 08/09/2021 17:28:32 08/10/19 22 08/09/2021 scree n for child anxie ty-re lated emoti onal disor ders* Unknown Analyte 55 Not Available [facility] [address], [place], [address], 08/09/2021 17:28:33 08/10/19 22 08/09/2021 scree n for child anxie ty-re lated emoti onal disor ders* Unknown Analyte abnorm al Not Available [facility] [address], [place], [address], 08/09/2021 17:28:33 08/17/19 22 08/16/2021 scree n for child anxie ty-re lated emoti onal disor ders* Unknown Analyte 55 Not Available [facility] [address], [place], [address], 08/16/2021 15:19:29 08/17/19 22 08/16/2021 scree n for child anxie ty-re lated emoti onal disor ders* Unknown Analyte abnorm al Not Available [facility] [address], [place], [address], 08/16/2021 15:19:29 08/17/19 22 08/16/2021 scree n for child anxie ty-re lated emoti onal disor ders* Unknown Analyte 7 Not Available [facility] [address], [place], [address], 08/16/2021 15:19:29 08/17/19 22 08/16/2021 scree n for child anxie ty-re lated emoti onal disor ders* Unknown Analyte normal Not Available [facility] [address], [place], [address], 08/16/2021 15:19:29 08/17/19 22 08/16/2021 patie nt healt h quest ionna virgen depre ssion asses sment * SCORE: 24 Not Available [facility] [address], [place], [address], 08/16/2021 15:19:29 08/17/19 22 08/16/2021 patie nt healt h quest ionna virgen depre ssion asses sment * RECOMMENDATI ONS: DISCUS SED WITH PARENT NEED FOR FOLLOW UP TREATM ENT AND EVALUA TION Not Available [facility] [address], [place], [address], 08/16/2021 15:19:29 11/05/19 22 11/04/2021 urina lysis , dipst ick Specific [place] >1.030 Not Available [facility] [address], [place], [address], 11/02/2021 14:11:55 11/05/19 22 11/04/2021 urina lysis , dipst ick pH 6.0 Not Available [facility] [address], [place], [address], 11/02/2021 14:11:55 11/05/19 22 11/04/2021 urina lysis , dipst ick Leukocytes Negati ve Not Available [facility] [address], [place], [address], 11/02/2021 14:11:55 11/05/19 22 11/04/2021 urina lysis , dipst ick Nitrite negati ve Not Available [facility] [address], [place], [address], 11/02/2021 14:11:55 11/05/19 22 11/04/2021 urina lysis , dipst ick Urobilinogen .2 Not Available [facility] [address], [place], [address], 11/02/2021 14:11:55 11/05/19 22 11/04/2021 urina lysis , dipst ick Protein Negati ve Not Available [facility] [address], [place], [address], 11/02/2021 14:11:55 11/05/19 22 11/04/2021 urina lysis , dipst ick Blood Negati ve Not Available [facility] [address], [place], [address], 11/02/2021 14:11:55 11/05/19 22 11/04/2021 urina lysis , dipst ick Ketone Negati ve Not Available [facility] [address], [place], [address], 11/02/2021 14:11:55 11/05/19 22 11/04/2021 urina lysis , dipst ick Bilirubin Negati ve Not Available [facility] [address], [place], [address], 11/02/2021 14:11:55 11/05/19 22 11/04/2021 urina lysis , dipst ick Glucose Negati ve Not Available [facility] [address], [place], [address], 11/02/2021 14:11:55 11/05/19 22 11/04/2021 urina lysis , dipst ick Appearance Clear Not Available [facility] [address], [place], [address], 11/02/2021 14:11:55 11/05/19 22 11/04/2021 urina lysis , dipst ick Color Yellow Not Available [facility] [address], [place], [address], 11/02/2021 14:11:55 11/07/19 22 11/06/2021 patie nt healt h quest ionna virgen depre ssion asses sment * SCORE: 1 Not Available [facility] [address], [place], [address], 11/02/2021 14:11:56 11/07/19 22 11/06/2021 patie nt healt h quest ionna virgen depre ssion asses sment * RECOMMENDATI ONS: NORMAL PHQ-9 SCORE, NO FURTHE R TREATM ENT REQUIR ED Not Available [facility] [address], [place], [address], 11/02/2021 14:11:56 11/17/19 22 11/16/2021 CRAFF T, subst ance abuse scree michael for adole scent s* Recommendati ons: Normal CRAFFT score- no furthe r treatm ent requir ed Not Available [facility] [address], [place], [address], 11/02/2021 14:11:56 03/30/20 22 04/02/2022 CULTU RE, THROA T culture, throat SEE NOTE CULTU RE, THROA T Micro Numbe r: [id number] Test Statu s: Final Speci men Sourc e: Throa t Speci men Quali ty: Adequ ate Resul t: No oroph aryng eal patho gens recov ered. Not Available [place] [address] [place], [address], 04/02/2022 01:16:37 03/30/2003/30/2022 rapid strep group A, throa t Result negati ve Not Available [facility] [address], [place], [address], 03/30/2022 15:16:44 06/23/19 25 06/23/2024 urina lysis , dipst ick Specific [place] >1.030 Not Available [facility] [address], [place], [address], 06/23/2024 12:03:10 06/23/19 25 06/23/2024 urina lysis , dipst ick pH 5.0 Not Available [facility] [address], [place], [address], 06/23/2024 12:03:10 06/23/19 25 06/23/2024 urina lysis , dipst ick Leukocytes Negati ve Not Available [facility] [address], [place], [address], 06/23/2024 12:03:10 06/23/19 25 06/23/2024 urina lysis , dipst ick Nitrite negati ve Not Available [facility] [address], [place], [address], 06/23/2024 12:03:10 06/23/19 25 06/23/2024 urina lysis , dipst ick Urobilinogen 1 Not Available [facility] [address], [place], [address], 06/23/2024 12:03:10 06/23/19 25 06/23/2024 urina lysis , dipst ick Protein Trace Not Available [facility] [address], [place], [address], 06/23/2024 12:03:10 06/23/19 25 06/23/2024 urina lysis , dipst ick Blood Negati ve Not Available [facility] [address], [place], [address], 06/23/2024 12:03:10 06/23/19 25 06/23/2024 urina lysis , dipst ick Ketone Large (160) Not Available [facility] [address], [place], [address], 06/23/2024 12:03:10 06/23/19 25 06/23/2024 urina lysis , dipst ick Bilirubin Small Not Available [facility] [address], [place], [address], 06/23/2024 12:03:10 06/23/19 25 06/23/2024 urina lysis , dipst ick Glucose Negati ve Not Available [facility] [address], [place], [address], 06/23/2024 12:03:10 06/23/19 25 06/23/2024 urina lysis , dipst ick Appearance Clear Not Available [facility] [address], [place], [address], 06/23/2024 12:03:10 06/23/19 25 06/23/2024 urina lysis , dipst ick Color Yellow Not Available [facility] [address], [place], [address], 06/23/2024 12:03:10 06/23/19 25 06/23/2024 patie nt healt h quest ionna virgen depre ssion asses sment * SCORE: 5 Not Available [facility] [address] [facility] [place], [address], 06/23/2024 12:03:10 06/23/1906/23/2024 patie nt healt h quest ionna virgen depre ssion asses sment * RECOMMENDATI ONS: NORMAL PHQ-9 SCORE, NO FURTHE R TREATM ENT REQUIR ED Not Available [facility] [address] [place] [address] [address], [place], [address], 06/23/2024 12:03:10 Result Notes None recorded. Problems Name Problem SNOMED Code Status Onset Date Resolution Date Notes Provider Name and Address Organization Details Recorded Time Nicotine user 437852298 Active 2020 Leti Cedillo MD [address] [place] [address], [place], [address], [facility], 1 14:02:50 Mixed anxiety and depressive disorder 344535785 Active 2020 Leti Cedillo MD [address] [place] [address], [address], [facility], 1 14:03:33 Viral infection by site Completed 06/22/2016 Leti Cedillo MD [address] [place] [address], [address], [facility], 7 11:06:02 Fever [id number] Completed 06/22/2016 Leti Cedillo MD [address] [place] [address], [address], [facility], 7 11:06:06 Acute pharyngitis 596511051 Completed 06/22/2016 Leti Cedillo MD [address] [place] [address], [address], [facility], 7 11:06:04 Influenza with respiratory manifestati on other than pneumonia Completed 06/22/2016 Leti Cedillo MD [address] [place] [address], [place], [address], [facility], 7 11:06:12 Acute suppurative otitis media without spontaneous rupture of ear drum 55395169 Completed 06/22/2016 Leti Cedillo MD [address] [place] [address] [place] [address], [address], [facility], 7 11:05:56 No current problems or disability [id number] [facility], 8 09:19:55 Folliculiti s 79089222 Completed 03/19/2018 [facility] 09:19:53 Upper respiratory infection 13384766 Completed 06/22/2016 Leti Cedillo MD [address] [place] [address] [place] [address], [address], [facility], 7 11:06:09 Common cold 13071450 Completed 06/22/2016 Leti Cedillo MD [address] [place] [address] [place] [address], [address], [facility], 7 11:06:14 Conjunctivi tis 4147829 Completed 06/22/2016 Leti Cedillo MD [address] [place] [address] [place] [address], [address], [facility], [facility] 11:06:16 Non-suppura tive otitis media 987222350 Completed 06/22/2016 Leti Cedillo MD [address] [place] [address] [place] [address], [address], [facility], 7 11:05:59 Problem Notes None recorded. Procedures Surgical History Date Name Laterality Status Provider Name and Address Organization Details Recorded Time Appendectomy completed Breanna Cramer [facility], 08/21/2023 15:32:32 Imaging Results None recorded. [...] Address Organization Details Last Updated DateTime 05/28/2024 95299.45 g 98.2 [degF] 112 /min 16 /min [facility], 05/28/2024 14:18:13 Date Recorded Body weight Body temperature Heart rate Respiratory rate Body mass index (BMI) [Percentile] Per age and sex Body mass index (BMI) Body height Systolic And Diastolic Provider Name and Address Organization Details Last Updated DateTime 5 38479.2 6 g 98.2 [degF] 88 /min 16 /min 73 % 24.2 kg/m2 167.01 cm 110/70 mm[Hg] [facility], 5 12:04:35 Date Recorded Body weight Body temperature Heart rate Respiratory rate Provider Name and Address Organization Details Last Updated DateTime 08/16/2021 03863.15 g 98.1 [degF] 108 /min 18 /min [facility] Dick[facility], 08/16/2021 15:36:16 Date Recorded Body weight Body mass index (BMI) Body mass index (BMI) [Percentile] Per age and sex Body height Heart rate Respiratory rate Systolic And Diastolic Provider Name and Address Organization Details Last Updated DateTime 2 62344.1 9 g 21.5 kg/m2 54 % 167.01 cm 96 /min 20 /min 114/78 mm[Hg] Shan[facility], 2 15:13:06 Date Recorded Systolic And Diastolic Provider Name and Address Organization Details Last Updated DateTime 03/30/2022 98/70 mm[Hg] Leti Cedillo MD [address] [facility] [address], [place], [address], [place] [facility], 03/30/2022 15:12:16 Date Recorded Body temperature Heart rate Respiratory rate Body weight Provider Name and Address Organization Details Last Updated DateTime 03/30/2022 98.8 [degF] 120 /min 20 /min 24128.93 g Shanice Bender [place] [facility], 14:50:18 Social History Question Answer Notes LastModified by Organizat ion Details LastModified Time Tobacco Smoking Status Never Smoker Clarisse gee, [place] [facility], 03/19/2018 09:12:53 How Many Years Have You Consumed Alcohol? 0 [email or web address] Information not available 03/19/2018 Animal Exposure? Yes Informat ion not available 11/26/2015 Are You Blind Or Do You Have Difficulty Seeing? No [email or web address] Information not available 03/19/2018 What Is Your Level Of Caffeine Consumption? Occasional [email or web address] Information not available 03/19/2018 Concerns About Meeting Basic Needs (food, Housing, Heat, Etc)? No [email or web address] Information not available 03/19/2018 Are You Deaf Or Do You Have Serious Difficulty Hearing? No [email or web address] Information not available 03/19/2018 Are You At Moderate Or High Risk For Dental Cavities? No Information not available 03/19/2018 What Type Of Diet Are You Following? REGULAR [email or web address] Information not available 03/19/2018 Does Family Ever Have Difficulty Making Ends Meet At The End Of The Month? No Information not available 03/19/2018 Which Illicit Or Recreational Drugs Have You Used? Denies Information not available 03/19/2018 What Is The Highest Grade Or Level Of School You Have Completed Or The Highest Degree You Have Received? [id number] Information not available 06/23/2024 Who Is Your Employer? [employer] [email or web address] Information not available 06/23/2024 Have There Been Any Changes To Your Family Or Social Situation? No [email or web address] Information not available 03/19/2018 What Is The Fluoride Status Of Your Home? Fluoridated [email or web address] Information not available 03/19/2018 Are There Any Guns Present In Your Home? Yes Locked Up Information not available 11/04/2021 Hard Of Hearing Or Deaf In One Or Both Ears? No [email or web address] Information not available 03/19/2018 What Is Your Home Situation? Other Lives On Her Own. [email or web address] Information not available 06/23/2024 How Many Years Have You Used Illicit Or Recreational Drugs? 0 [email or web address] Information not available 03/19/2018 Do You Use Insect Repellent Routinely? Yes Information not available 11/26/2015 Legally Blind In One Or Both Eyes? No [email or web address] Information not available 03/19/2018 What Was The Date Of Your Most Recent Tobacco Screening? 06/23/2024 [email or web address] Information not available 06/23/2024 Family Has Moved Frequently/lived With Others Due To Finances Within The Last Year? No [email or web address] Information not available 03/19/2018 What Is Your [...] Smokers In Your House? Yes Smokes Outside Information not available 11/04/2021 Do You Participate In Social Media? No [email or web address] Information not available 03/19/2018 General Stress Level Low [email or web address] Information not available 03/19/2018 Do You Use Sunscreen Routinely? Yes Information not available 11/26/2015 Year In School HS Grad [email or web address] Informatio n not available 06/23/2024 Sex: Unknown Functional Status Question Answer Note LastModified by Organizat ion Details LastModified Time Do you use any illicit or recreational drugs? No [email or web address] Information not available 06/23/2024 Do you or have you ever used any other forms of tobacco or nicotine? No [email or web address] Information not available 06/23/2024 What is your level of alcohol consumption? None [email or web address] Information not available 03/19/2018 Are you currently employed? Yes Information not available 11/04/2021 What is your exercise level? Moderate Information not available 11/26/2015 Mental Status Question Answer Note LastModified by Organization D etails LastModified Time Are you or have you been involved with bullying? No Information not available 03/19/2018 Family History Relationship [...] 01/08/2012 10:43:32 DTaP-Hep B-IPV 5 completed Betzaida Demiemajanina [place] [facility], 01/08/2012 10:43:32 Hep A, unspecified formulation 6 completed Betzaida Demiemaker [place] [facility], 01/08/2012 10:43:32 DTaP-Hep B-IPV 5 completed Betzaida Shoemaker [place] [facility], 01/08/2012 10:43:32 Hep A, unspecified formulation 8 completed Betzaida Demiemaker [place] [facility], 01/08/2012 10:43:32 DTaP-Hep B-IPV 4 completed Betzaida Dixon [place] [facility], 01/08/2012 10:43:32 varicella 9 completed Betzaida Shoemaker [place] [facility], 01/08/2012 10:43:32 MMR 5 completed Betzaida Simmsemaker [place] [facility], 01/08/2012 10:43:32 Hib, unspecified formulation 5 completed Betzaida Regaladoker [place] [facility], 01/08/2012 10:43:32 DTaP, unspecified formulation 6 completed Betzaida Simmsemaker [place] [facility], 01/08/2012 10:43:32 pneumococcal, unspecified formulation 4 completed Betzaida Simmsemaker [place] [facility], 01/08/2012 10:43:32 pneumococcal, unspecified formulation 6 completed Betzaida Simmsemaker [place] [facility], 01/08/2012 10:43:32 MMR 9 completed Betzaida Simmsemaker [place] [facility], 01/08/2012 10:43:32 varicella 5 completed Betza[place] Simmsemaker [place] [facility], 01/08/2012 10:43:32 Hib, unspecified formulation 6 completed Betza[place] [facility], 01/08/2012 10:43:32 DTaP-IPV 9 completed Betza[place] [facility], 01/08/2012 10:43:32 pneumococcal, unspecified formulation 5 completed Betza[place] [facility], 01/08/2012 10:43:32 Hib, unspecified formulation 4 completed Betzaida Simmsemaker [place] [facility], 01/08/2012 10:43:32 Tdap 6 completed [facility] 06/07/2019 02:12:40 Meningococcal MCV4O 6 completed Not Available [facility] 06/07/2019 02:12:42 HPV9 9 completed Not Available [facility] 06/07/2019 02:13:18 meningococcal conjugate quadrivalent, MenACWY-TT (MCV4) 2 completed Dayna East null, [place] [facility], 11/16/2021 14:37:11 HPV9 2 completed JELENA Martinez - [facility], 11/16/2021 14:37:11 Past Encounters Encounter ID Performer Location Encounter Start Date Encounter Closed Date Diagnosis/Indication Diagnosis SNOMED-CT Code Diagnosis ICD10 Code Diagnosis Note [id number] [facility]ingo [facility] [address] [place] [address],[address] [place] [address] 12/06/2009 14:11:03 12/06/2009 14:11:58 [id number] Tawnya Domingo [facility] [address] [place] [address],[address] [place] [address] 05/04/2011 14:34:32 05/09/2011 10:34:48 [id number] Tawnya Domingo [facility] [address] [place] [address],[address] [place] [address] 01/15/2012 17:56:53 01/18/2012 11:15:16 [id number] Tawnya Domingo [facility] [address] [place] [address],[address] [place] [address] 01/19/2012 11:01:45 01/24/2012 14:44:53 [id number] Tawnya Domingo [facility] [address] [place] [address],[address] [place] [address] 01/24/2012 10:17:48 01/26/2012 14:25:13 [id number] Tawnya Domingo [facility] [address] [place] [address],[address] [place] [address] 05/10/2012 11:24:05 05/13/2012 10:23:42 [id number] Tawnya Domingo [facility] [address] [place] [address],[address] [place] [address] 05/27/2012 17:39:54 05/30/2012 10:18:49 [id number] Leti Cedillo [facility] [address] [place] [address],[address] [place] [address] 03/06/2013 14:14:34 03/07/2013 12:15:49 [id number] Anjali Parra MD [facility] E [address] [place] [address],[address] [place] [address] 07/03/2013 12:35:37 07/04/2013 10:32:21 Folliculitis 35272600 [id number] Anjali Parra MD [facility] E [address] [place] [address],[address] [place] [address] 10/28/2013 11:01:43 10/30/2013 09:27:18 Folliculitis 45531499 [id number] Anjali Parra MD [facility] E [address] [place] [address],[facility] [address] [place] [address] 03/20/2014 11:20:30 03/23/2014 09:16:29 Upper respiratory infection [id number] Anjali Parra MD [address],[facility] [address] [place] [address] 05/19/2014 15:15:28 05/22/2014 09:40:02 Acute suppurative otitis media without spontaneous rupture of ear drum 31122333 [id number] Leti Cedillo MD [address],[facility] TE [address] [place] [address] 04/12/2015 14:14:02 04/13/2015 10:02:59 Common cold 26394968 J00 [id number] Anjali Parra MD [address],[facility] [address] [place] [address] 06/30/2015 11:23:41 07/01/2015 13:26:59 Acute suppurative otitis media without spontaneous rupture of ear drum [id number] H66.001 Conjunctivitis 3976575 H 10.9 Non-suppur ative otitis media [id number] H65.02 [id number] Anjali Parra MD PEDIATRIC [address] [place] [address] 10/06/2015 11:35:47 10/08/2015 09:27:39 Otalgia 87509909 H92.03 Otalgia due to Eustachian Tube Dysfunctio n: Education provided. Initiate Zyrtec daily, Continue Nasal Steroids.R eturn to clinic should symptoms worsen or change. [id number] Anjali Parra MD [facility] [address] [place] [address],[address] [address] 11/26/2015 14:56:40 11/27/2015 10:53:45 Well child [id number] Z00.129 Well adolescent - appropriat e for [...] habits were discussed. Breast self exam discussed. [id number] Leti Cedillo MD [facility] [address] [place] [address] 06/22/2016 10:57:02 06/23/2016 09:50:31 Otalgia 82004158 H92.01 Concurrent URI, so possible contributi on from sinus fullness, but also with TMJ tenderness and 11yo molars erupting. DIscussed decongesta nt and anti-infla matory use to combat all and f/u with dentist if not improving after cold sx resolve. [id number] Anjali Parra MD [facility] [address] [place] [address] 3 02/23/2017 10:57:07 02/24/2017 12:19:14 Well child [id number] Z00.129 Well 12 y/o - appropriat e for growth and developmen t. Anticipato ry guidance to parent. RTC in 1 year for next routine visit. Declined Influenza and Gardasil vaccinatio ns. All questions were answered and the physical form completed. Discussed healthy eating habits and daily exercise. [id number] Leti Cedillo MD [facility] [address] [place] [address] 3 08/30/2017 16:05:26 08/31/2017 11:56:08 Paronychia of toe [id number] L03.039 Resolving well. Continue neosporin to the nailbed, soak twice daily, and call if any worsening or fever. Pain in left foot [id number] 4751 [id number] M79.672 Musculo-sk eletal from altered body mechanics of walking with the paronychia ? There is no mechanism for injury, no external signs of inflamatio n, no point tenderness , and no systemic signs of illness. Recommende d anti-infla mmatory PRN and instructed to do ROM exercises and increasing ly bear weight. [id number] Leti Cedillo MD [facility] [address] [place] [address] 3 11/30/2017 14:29:51 12/03/2017 10:53:58 Injury of elbow [id number] S59.901A Fall onto R arm with pain [...] concur with the management . Leti Kolby [id number] Leti Cedillo [facility] [address] [place] [address] 01/11/2018 11:48:37 01/14/2018 10:35:30 Viral upper respiratory tract infection 433036949 J06.9 Viral URI- supportive care, encourage oral fluids, tylenol or ibuprofen as needed, no antibiotic indicated at this time, RTC if becomes febrile or dehydratio n concerns, all questions answered. Otalgia 53374918 H92.01 Retracted TM, recommend nasal steroid. [id number] Anjali Parra MD [facility] [address] [place] [address] 3 03/19/2018 09:02:20 03/20/2018 10:52:22 Well child 830087700 Z00.129 Well 13 y/o - appropriat e for growth and developmen t. Anticipato ry guidance to parent. RTC in 1 year for next routine visit. All questions were answered and the physical form completed. Discussed healthy eating habits and daily exercise. Discussed gardasil and flu vaccinatio ns. Mom declines at this time. Handout about HPV given to mom. [id number] Leti [facility]edillo [facility] [address] [place] [address] 10/21/2018 10:09:18 10/22/2018 10:25:31 Active or passive immunization [id number] Z23 I discussed with the parent the vaccines ordered below that the patient is to receive today; all questions were answered and the informatio nal handout(s) was/were given. [id number] Leti Cedillo MD PEDIATRIC [facility] E [address] [place] [address] 3 12/06/2018 10:07:06 12/09/2018 09:27:10 Viral enteritis of intestine 81092601 A08.4 Resolved diarrhea at this point, but persistent cramping that is worse with food intake like nachos. Advised some more bland/andie ng food choices, staying hydrated, calling if blood/muco us in stool or if loose stools last more than 2 weeks. [id number] Leti Cedillo MD PEDIATRIC [facility] E [address] [place] [address] 3 01/31/2021 10:31:06 02/01/2021 11:48:53 Mixed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
--- OUTSIDE RECORDS SUMMARY | 2024-11-20 12:38 | XMS_ITS | Clinical Summary ---
Author Organization [facility] Address [address] [place] [phone] Phone Care Team Providers Care Inflatable Buildings Laminator Name Role Phone Provider, None Primary Care [...] Comments Blood Pressure 92/60 06/03/2017 11:27 AM MARKETING CAMPAIGN ANALYST Pulse 100 06/03/2017 11:27 AM MARKETING CAMPAIGN ANALYST Temperature 36.9 C (98.4 F) 06/03/2017 11:27 AM MARKETING CAMPAIGN ANALYST Respiratory Rate - - Oxygen Saturation 98% 06/03/2017 11:27 AM MARKETING CAMPAIGN ANALYST Inhaled Oxygen Concentration - - Weight 57.2 kg (126 lb) 06/03/2017 11:27 AM MARKETING CAMPAIGN ANALYST Height 167.6 cm (5' 6) 06/03/2017 11:27 AM MARKETING CAMPAIGN ANALYST Body Mass Index 20.34 06/03/2017 11:27 AM MARKETING CAMPAIGN ANALYST Plan of Treatment Health Maintenance Due Date [...] age to complete this topic Care Teams Inflatable Buildings Laminator Relationship Specialty Start Date End Date Provider, None [place] PCP - General 06/03/17
--- OUTSIDE RECORDS SUMMARY | 2024-11-20 12:38 | XMS_ITS | Referral Summary ---
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 Gender Identity Not on file Sexual Orientation [...] Ag POC Presumptive Negative Presumptive Negative, Invalid [facility] Nasal 09/28/2024 5:02 PM CDT us Neris Rodriguez RETORT FIREMAN POINT OF CARE TEST OR DERABLES Final Result [facility] [place] [id number] [facility] [address] [place] [phone] * POCT rapid strep A (09/28/2024 5:02 PM CDT) Rapid Strep A, POC Negative Negative Swab 09/28/2024 5:02 PM CDT Result [facility] Neris Rodriguez RETORT FIREMAN POINT OF CARE TEST OR DERABLES Final Result from Last 3 Months Insurance [facility] HMO [facility] CHOICE PLUS [facility] HMO/PPO Address: [address] [address] [place] [address] [facility] CHOICE PLUS [facility] HMO/PPO Address: [address] [place] [address] AETNA [facility] HMO A[employer] HEALTHCARE PPO Advance Directives For more information, please contact: [phone] * Full Code (Latest Code Status on File) Date Activated Date Inactivated Comments 08/14/2023 9:39 PM 08/16/2023 12:26 AM Care Teams Teradata Architect Relationship Specialty Start Date End Date Meghan Cedillo MD PCP - General Pediatrics 11/22/16
--- OUTSIDE RECORDS SUMMARY | 2024-11-20 12:38 | XMS_ITS | Clinical Summary ---
Author Organization [facility] Address [address] [place] [address] Phone Care Team Providers Care Heat Treater Name Role Phone Meghan Cedillo MD Primary [...] 19+ 3-dose series) 05/2022 INFLUENZA VACCINE (#1) 2024 Insurance AET[employer] CHOICE POS II AETNA CHOICE POS II Care Teams Heat Treater Relationship Specialty Start Date End Date Meghan Cedillo MD PCP - General Pediatrics 08/16/21
--- OUTSIDE RECORDS SUMMARY | 2024-11-20 12:38 | XMS_ITS | Clinical Summary ---
Author Organization [facility] Address [address] [place] [address] Care Team Providers Care Ax Survey Worker Name Role Phone Meghan Jarrett MD Primary Care Provider [phone] Source Comments [facility],non-owned Affiliates and Associated Physician Practices is amultiple site organization consisting of ambulatory clinics and hospital sitesin [place], [place], [place] and [place]. This disclosure is being madepursuant to the Care Everywhere program and may not contain all information available regarding this patient. Last updated 18.[facility] Allergies No known active allergies Medications * [...] on file Legal Sex Female 5:43 AM NETWORK OPERATIONS MANAGER Gender Identity Not on file Sexual Orientation Not on file Last Filed Vital Signs Vital Sign Reading Time Taken Comments Blood Pressure - - Pulse - - Temperature - - Respiratory Rate - - Oxygen Saturation - - Inhaled Oxygen Concentration - - Weight 56.7 kg (125 lb) 05/01/2017 2:13 PM NETWORK OPERATIONS MANAGER Height 167.5 cm (5' 5.95) 05/01/2017 2:13 PM CS T Body Mass Index 20.21 05/01/2017 2:13 PM NETWORK OPERATIONS MANAGER Plan of Treatment Health Maintenance Due Date [...] complete this topic Insurance [employer] Care Teams Ax Survey Worker Relationship Specialty Start Date End Date Meghan Jarrett MD PCP - General Pediatrics 05/01/17
[2024-11-20 12:45] VITALS: BP 91/69; PULSE 100
[2024-11-20 12:48] VITALS: BP 113/73; PULSE 108; RESP 18; TEMP 36.8; BMI 29.2
[2024-11-20 13:00] VITALS: BP 97/61; PULSE 98
[2024-11-20 13:15] VITALS: BP 104/71; PULSE 101
[2024-11-20] MEDS: DEXTROSE 5%/LACTATED RINGERS 1,000 ML 999 ML IV CONT (13:37)
[2024-11-20 14:57] LABS: Hematocrit 33.9 % (37.0-47.0); Hemoglobin 10.8 g/dL (12.0-15.0); Immature Granulocyte Percent A 1.2 % (0-0.5); Lymphocytes Absolute Auto 1.81 K/mm3 (0.9-3.2); Mean Corpuscular HGB Conc 31.9 g/dl (32-36); Mean Corpuscular Hemoglobin 28.1 pg (26-34); Mean Corpuscular Volume 88.3 fl (80-100); Nucleated Red Blood Cells Absolute Auto 0.000 K/mm3 (0.0-0.012); Nucleated Red Blood Cells Perc 0.0 % (0.0-0.2); Platelet Count Result 246 k/mm3 (150-375); Red Blood Count 3.84 M/mm3 (4.2-5.4); White Blood Count 11.7 K/mm3 (4.5-10.0)
[2024-11-20 15:08] LABS: Alanine Aminotransferase 11 U/L (6-35); Albumin Level 3.5 g/dL (3.5-5.1); Alkaline Phosphatase 132 U/L (38-126); Anion Gap 8 mmol/L (4-12); Aspartate Amino Transferase 26 U/L (14-36); Bilirubin,Total 0.4 mg/dL (0.2-1.3); Blood Urea Nitrogen 7 mg/dL (7-17); Calcium 8.5 mg/dL (8.4-10.2); Carbon Dioxide 20 mmol/L (22-30); Chloride 108 mmol/L (98-107); Estimated Glomerular Filt Rate > 60; Glucose 77 mg/dL (65-110); Potassium 3.9 mmol/L (3.4-5.0); Sodium 136 mmol/L (137-145); Total Protein 6.7 g/dL (6.3-8.2)
[2024-11-20 15:23] LABS: Add Urine Microscopic? YES; Appearance Urine Clear (Clear); Glucose Urine UA 2+ mg/dL (Negative); Leukocyte Esterase Ur 2+ LEU/UL (Negative); Need Manual Microscopic Reviewed; Nitrate Urine Negative (Negative); Non Pathogenic Casts 0-2; Specific Grav Ur 1.014 (1.001-1.035)
--- NOTE | 2024-11-24 07:16 | P.PNOB_ITS ---
OB - Triage/Final Diagnosis Visit Information Comments/Additional reasons for admission: I have assessed the risk for this patient, Shelbi Miller, and determined that she would benefit from observation care. Evaluation Laboratory results: Laboratory Tests 11/20/24 11/20/24 12:49 12:58 WBC 11.7 H RBC 3.84 L Hgb 10.8 L Hct 33.9 L MCV 88.3 MCH 28.1 MCHC 31.9 L RDW 17.2 H Plt Count 246 MPV 10.9 H Immature Gran % (Auto) 1.2 H Neut % (Auto) 77.7 H Lymph % (Auto) 15.4 L [place] % (Auto) 5.0 Eos % (Auto) 0.4 Baso % (Auto) 0.3 Lymph # (Auto) 1.81 [place] # (Auto) 0.6 Eos # (Auto) 0.1 Baso # (Auto) 0.0 Abs Immat Gran (auto) 0.14 H Absolute Neuts (auto) 9.1 H Absolute Nucleated RBC 0.000 Nucleated RBC % 0.0 Sodium 136 L Potassium 3.9 Chloride 108 H Carbon Dioxide 20 L Anion Gap 8 BUN 7 Creatinine 0.48 L Estim Creat Clear Calc Not Reportable Estimated GFR > 60 Glucose 77 Calcium 8.5 Total Bilirubin 0.4 AST 26 ALT 11 Alkaline Phosphatase 132 H Total Protein 6.7 Albumin 3.5 Urine Color Yellow Urine Appearance Clear Urine pH 7.5 Ur Specific [place] 1.014 Urine Protein Negative Urine Glucose (UA) 2+ H Urine Ketones Negative Ur Blood (Man) Negative Urine Nitrate Negative Urine Bilirubin Negative Urine Urobilinogen 1.0 Ur Leukocyte Esterase 2+ H Add Ur Microanalysis Reviewed Urine RBC 0-2 Urine WBC 0-5 Ur Squamous Epith Cells Occasional Urine Bacteria 1+ H Urine Casts 0-2 Final Diagnosis (1) Nausea and vomiting during : Code(s): O21.9 - Vomiting of , unspecified Status: Acute (2) Decreased movement: Code(s): O36.8190 - Decreased movements, unspecified trimester, not applicable or unspecified Status: Acute
== END 2024-11-20 15:45 | disposition home or self-care (01) ==
PROVIDERS: Admitting Provider Obstetrics & Gynecology; Visit Provider Obstetrics & Gynecology
DX: O21.2 Late vomiting of pregnancy (principal); O36.8130 Decreased fetal movements, third trimester, not applicable or unspecified; Z3A.32 32 weeks gestation of pregnancy
CPT/HCPCS: 36415; 80053; 81001; 85025; 87086; 96374; 96375; G0378; G0379; J7121

== ENCOUNTER 2025-01-02 12:27 | Outpatient (RCR) | payer OTHER, MEDICAID, SELFPAY ==
[2024-12-02 10:18] VITALS: BP 96/63; PULSE 118
--- NOTE | 2024-12-02 11:25 | PC.NURSE ---
1125 Dr Sawant called with MCKAY and BPP results. May go home.
[2024-12-23 11:38] VITALS: BP 109/61; PULSE 114
--- NOTE | ~2025-01-02 | US_ITS ---
EXAMINATION: US OB BPP wo non-stress DATE: 12/23/2024 11:32 INDICATION: Decreased movements during third trimester . Assess amniotic fluid index. TECHNIQUE: Real-time pelvic ultrasound was performed. The interpreting radiologist was not present fo r the study. COMPARISON: None. FINDINGS: There is a single living fetus in vertex presentation. The placenta is posterior. heart rate i s 142 beats per minute (bpm). Normal amniotic fluid index of 10.6 cm (5th%-95%: 7.5-24.4 cm at 37 wee ks estimated gestational age) Biophysical profile performed by the technologist: breathing (30 sec sustained breathing in 30 minutes): 2 out of 2 movement (3 gross body movements in 30 minutes): 2 out of 2 tone (one episode of gdewcjf-pwbyzodcv-tcqmwuv limb movement): 2 out of 2 Amniotic fluid pocket (2 cm): 2 out of 2 Total score: 8 out of 8 IMPRESSION: 1. Single living fetus in vertex presentation with heart rate of 142 bpm. 2. Biophysical profile 8 out of 8. 3. Normal amniotic fluid index of 10.6 cm Reviewed, dictated and finalized at location A.
--- NOTE | ~2025-01-02 | US_ITS ---
LIMITED OBSTETRIC ULTRASOUND/BIOPHYSICAL PROFILE Ordering provider: Karla Sawant MD History: . BPP and MCKYA for decreased movement. . Comparison: None. FINDINGS: MATERNAL CERVIX: Not visualized. cm which is normal (normal is equal to or greater than 3.0 cm). PRESENTATION: Vertex. Longitudinal lie. Spine is to maternal right. PLACENTAL LOCATION: Posterior. No previa. HEART RATE: 158 bpm (normal is between 110 to 160 bpm). AMNIOTIC FLUID INDEX: 8.7 cm. Largest vertical pocket is 4.7 cm. normal (MCKAY between 5-25 cm in from 20-35 weeks gestation is considered normal). OTHER: Maternal ovaries not visualized. SCORE: breathing movements: 2 movements: 2 tone: 2 Amniotic fluid volume: 2 Total: 8 IMPRESSION: Normal biophysical profile. Reviewed, dictated and finalized at location A. IMPRESSION: Normal biophysical profile.
[2025-01-02 13:10] VITALS: BP 111/74
== END 2025-01-15 13:40 | disposition other institution (70) ==
LOC: ANHOBOP 12:27
PROVIDERS: Visit Provider Obstetrics & Gynecology
DX: O36.8130 Decreased fetal movements, third trimester, not applicable or unspecified (principal); Z3A.34 34 weeks gestation of pregnancy; Z3A.37 37 weeks gestation of pregnancy; Z3A.38 38 weeks gestation of pregnancy
CPT/HCPCS: 59025; 76819

== ENCOUNTER 2025-01-04 15:50 | Inpatient (IN) | payer OTHER, MEDICAID, SELFPAY ==
[2025-01-04] VITALS (13 sets, daily range): BP systolic 102–121; BP diastolic 68–88; PULSE 88–111; RESP 14–16; TEMP 36.6–36.8; BMI 29.1
--- OUTSIDE RECORDS SUMMARY | 2025-01-04 15:56 | XMS_ITS | Clinical Summary ---
Author Organization [facility] Address [address] [place] [address] Care Team Providers Care Survey Research Manager Name Role Phone Meghan Jarrett MD Primary Care Provider [phone] Source Comments [facility],non-owned Affiliates and Associated Physician Practices is amultiple site organization consisting of ambulatory clinics and hospital sitesin [place], [place], [place] and [place]. This disclosure is being madepursuant to the Care Everywhere program and may not contain all information available regarding this patient. Last updated 18.[facility] Allergies No known active allergies Medications * [...] on file Legal Sex Female 5:43 AM AUDIO SPECIALIST Gender Identity Not on file Sexual Orientation Not on file Last Filed Vital Signs Vital Sign Reading Time Taken Comments Blood Pressure - - Pulse - - Temperature - - Respiratory Rate - - Oxygen Saturation - - Inhaled Oxygen Concentration - - Weight 56.7 kg (125 lb) 05/01/2017 2:13 PM AUDIO SPECIALIST Height 167.5 cm (5' 5.95) 05/01/2017 2:13 PM CS T Body Mass Index 20.21 05/01/2017 2:13 PM AUDIO SPECIALIST Plan of Treatment Health Maintenance Due Date [...] season) 2024 DEPRESSION SCREENING 05/21/2024 INFLUENZA VACCINE (#1) 2025 ZOSTER VACCINE (1 of 2) 02/18/2054 HIB VACCINE Aged Out No longer eligi ble based on patient's age to complete this topic MENINGOCOCCAL GROUPS A/C/Y/W VACCINE Aged Out No longer eligible b ased on patient's age to complete this topic PNEUMOCOCCAL VACCINE Aged Out No long er eligible based on patient's age to complete this topic Insurance A[employer] Care Teams Survey Research Manager Relationship Specialty Start Date End Date Meghan Jarrett MD PCP - General Pediatrics 05/01/17
--- OUTSIDE RECORDS SUMMARY | 2025-01-04 15:56 | XMS_ITS | Clinical Summary ---
Author Organization [facility] Address [address] [place] [address] Care Team Providers Care Patient Coordinator Name Role Phone Meghan Cedillo MD [...] proximal phalanx of right ring finger 05/01/2017 Surgical History Surgery Date Site/Laterality Comments OTHER [...] on file Legal Sex Female 11:29 PM [employer] Gender Identity Not on file Sexual Orientation [...] Regular Well Visit/Exam 18-64 02/18/2022 Influenza Vaccine (#1) 2025 03/11/2009 DTaP/Tdap/Td Vaccine (7 - Td or Tdap) 11/25/2025 11/26/2015, 03/11/2009, 08/25/2005, Additional history exists Hepatitis B Screening Completed 2004 , 2004, 2004, Additional history exists Pneumococcal vaccine <65 Completed 006, 08/25/2005, 2004, Additional history exists Varicella Vaccines Completed 03/11/2009, 02/20/2005 HPV Vaccines Completed 11/04/2021, 10/21/2018 Meningococcal Vaccine Completed 11/04/2021, 016 Insurance AETNA [facility] HMO [facility] CHOICE [facility] HMO/PPO Address: [address] [address] [place] [address] [facility] CHOICE [facility] HMO/PPO Address: [address] [address] [place] [address] [facility] HMO [facility] H[facility]/PPO Address: [id number] [place] [id number] [facility] H[facility]/PPO Address: [phone] [place] [phone] Advance Directives For more information, please contact: [phone] * Full Code (Latest Code Status on File) Date Activated Date Inactivated Comments 08/14/2023 9:39 PM 08/16/2023 12:26 AM Care Teams Patient Coordinator Relationship Specialty Start Date End Date Meghan Cedillo MD PCP - General Pediatrics 11/22/16
--- OUTSIDE RECORDS SUMMARY | 2025-01-04 15:56 | XMS_ITS | Clinical Summary ---
Author Organization [facility] Address [address] [place] [phone] Phone Care Team Providers Care Sub Plant Manager Name Role Phone Provider, None Primary Care [...] Comments Blood Pressure 92/60 06/03/2017 11:27 AM [employer] Pulse 100 06/03/2017 11:27 AM [employer] Temperature 36.9 C (98.4 F) 06/03/2017 11:27 AM [employer] Respiratory Rate - - Oxygen Saturation 98% 06/03/2017 11:27 AM [employer] Inhaled Oxygen Concentration - - Weight 57.2 kg (126 lb) 06/03/2017 11:27 AM [employer] Height 167.6 cm (5' 6) 06/03/2017 11:27 AM [employer] Body Mass Index 20.34 06/03/2017 11:27 AM [employer] Plan of Treatment Health Maintenance Due Date Last Done Comments Hepatitis C Virus (HCV) Screening 2004 TdaP Immunization 2004 Human Papillomavirus (HPV) Immunization (1 - 3-dose series) 02/18/2019 Meningococcal B Immunization (1 of 2 - Standard) 2020 Hepatitis B Immunization (1 of 3 - 19+ 3-dose series) 02/18/2023 SARS-COV-2 Immunization (2023- season) 2024 Influenza Immunization (#1) 2025 Respiratory Syncytial Virus (RSV) Immunization (Adult) (1 - 1-dose 75+ series) 02/18/2079 Meningococcal Immunization (ACWY) Aged Out No longer eligible based on patient's age to complete this topic Pneumococcal Immunization Combined Aged Out No longer eligible based on patient's age to complete this topic Rotavirus Immunization Aged Out No lo nger eligible based on patient's age to complete this topic Care Teams Sub Plant Manager Relationship Specialty Start Date End Date Provider, None [place] PCP - General 06/03/17
--- OUTSIDE RECORDS SUMMARY | 2025-01-04 15:56 | XMS_ITS | Clinical Summary ---
Author Organization [facility] Address [address] [place] [address] Phone Care Team Providers Care Commissioner Conservation Of Resources Name Role Phone Meghan Cedillo MD Primary Care Provider + Allergies No known active allergies Medications venlafaxine (EFFEXOR) 37.5 mg tablet Take 37.5 mg by mouth 3 times daily. Active Family History Medical History Relation Name Comments No Known Problems Father No Known Problems Mother Relation Name Status Comments Father Mother Social History Tobacco Use Types Packs/Day Years Used Date Smoking Tobacco: Never Comments Unknown Sex and Gender Information Value [...] II AETNA CHOICE POS II Care Teams Commissioner Conservation Of Resources Relationship Specialty Start Date End Date Meghan Cedillo MD PCP - General Pediatrics 08/16/21
[2025-01-04] MEDS: DINOPROSTONE 10 MG VAG INSERT VAGINAL (16:40)
[2025-01-04 16:49] LABS: Hematocrit 30.3 % (37.0-47.0); Hemoglobin 9.7 g/dL (12.0-15.0); Immature Granulocyte Percent A 0.9 % (0-0.5); Lymphocytes Absolute Auto 1.69 K/mm3 (0.9-3.2); Mean Corpuscular HGB Conc 32.0 g/dl (32-36); Mean Corpuscular Hemoglobin 26.6 pg (26-34); Mean Corpuscular Volume 83.0 fl (80-100); Nucleated Red Blood Cells Absolute Auto 0.000 K/mm3 (0.0-0.012); Nucleated Red Blood Cells Perc 0.0 % (0.0-0.2); Platelet Count Result 251 k/mm3 (150-375); Red Blood Count 3.65 M/mm3 (4.2-5.4); White Blood Count 11.7 K/mm3 (4.5-10.0)
[2025-01-04 17:40] LABS: HIV 1/2 Ab P24 Ag Result Negative (Negative)
[2025-01-04 17:54] LABS: Syphilis IgG/IgM Antibody Non-Reactive (Nonreactive)
--- NOTE | 2025-01-04 18:57 | LDADM ---
This patient, Shelbi Miller, was admitted to Labor/Delivery/Recovery 105 on 01/04/25 at 15:50. Plans for labor, pain management and were discussed with patient. Patient/family oriented to hospital policies and general routines including ID bracelet, bed and alarms, visiting hours, pain management, procedures, bathroom and other care routines, personal items, smoking policy, room service/diet and guest tray routines, security routines, and visiting hours. Patient/Family are encouraged to report perceived risks to care and to ask questions if they do not understand what they are told or what they should do. See OBIX for further documentation.
--- NOTE | 2025-01-04 22:12 | WPDANESEPP ---
Anes - Eval Pre Procedure Procedure: labor pain management Date/Time: 01/04/25 22:12 Surgeon: Jese Preop Diagnosis: pain during labor Pre Op Diagnosis: IOL Patient Data Age: 19 Gender: F Height: 1.68 m Weight: 81.81 kg Last Vital Signs Temp 97.8 F 01/04/25 16:40 Pulse 111 H 01/04/25 21:41 Resp 16 01/04/25 16:40 BP 110/74 01/04/25 21:41 Allergies Allergy/AdvReac Type Severity Reaction Status Date / Time No Known Allergies Allergy Verified 01/04/25 18:51 Home Medications ?Medication ?Instructions ?Recorded ?Confirmed ?Type doxylamine succinate 25 mg tablet 12.5 mg (1/2 x 25 mg) PO TID #90 05/20/24 01/04/25 Rx (Unisom (doxylamine)) tabs pyridoxine (vitamin B6) 25 mg 25 mg PO TID #120 tabs 05/20/24 01/04/25 Rx tablet ferrous sulfate 325 mg (65 mg 325 mg PO DAILY 11/05/24 01/04/25 History iron) tablet (Feosol) famotidine 20 mg tablet (Pepcid) 20 mg PO DAILY 12/02/24 01/04/25 History Laboratory Tests 01/04/25 01/04/25 16:30 16:31 WBC 11.7 H K/mm3 (4.5-10.0) RBC 3.65 L M/mm3 (4.2-5.4) Hgb 9.7 L g/dL (12.0-15.0) Hct 30.3 L % (37.0-47.0) MCV 83.0 fl (80-100) MCH 26.6 pg (26-34) MCHC 32.0 g/dl (32-36) RDW 16.2 H % (11.5-14.5) Plt Count 251 k/mm3 (150-375) MPV 10.9 H fl (7.4-10.4) Immature Gran % (Auto) 0.9 H % (0-0.5) Neut % (Auto) 78.7 H % (45.5-73.1) Lymph % (Auto) 14.4 L % (18.3-44.2) [place] % (Auto) 5.1 % (2.6-8.5) Eos % (Auto) 0.4 % (0-4.4) Baso % (Auto) 0.5 % (0.2-1.2) Lymph # (Auto) 1.69 K/mm3 (0.9-3.2) [place] # (Auto) 0.6 K/mm3 (0.1-0.6) Eos # (Auto) 0.1 K/mm3 (0-0.3) Baso # (Auto) 0.1 K/mm3 (0.0-0.1) Abs Immat Gran (auto) 0.11 H K/mm3 (0.00-0.031) Absolute Neuts (auto) 9.2 H K/mm3 (1.3-6.7) Absolute Nucleated RBC 0.000 K/mm3 (0.0-0.012) Nucleated RBC % 0.0 % (0.0-0.2) Syphilis IgG/IgM Ab Non-reactive (Nonreactive) HIV 1&2 Ab/P24 Ag 4thGn Negative (Negative) Blood Type A Positive Antibody Screen Negative : gestational age (edc 01/10/25) Patient hx anesthesia problems: none Family hx anesthesia problems: none Prior surgeries: Appy Results Review: All pre-operative results and documents have been reviewed as part of the pre-operative evaluation. [facility] Past Medical History Medical History Suppression of menses Encounter for screening examination for sexually transmitted disease Anxiety and depression Surgical History Surgical History Hx of appendectomy Family History Family History Grandparent Breast cancer paternal great grandmother Social History Social History Smoking status: Former smoker Tobacco type: e-cigarettes/vaping Second hand tobacco smoke exposure: No Smoking end date: 05/10/25 Alcohol intake: never Substance use: never Substance use type: does not use Do You Feel Safe in your Home?: Yes Lack of Transportation: No Lack of Food: Never True Current Housing: I Have Housing Concerned About Future Housing: No Difficulty Paying Gas/Electric Bills: No Difficulty Paying for Meds: No Currently Unemployed: No Education: High School Diploma/GED Difficulty w/ Childcare or Family Care: No Living arrangements: with friend(s) Additional living arrangements comments: parents Occupation/Education: occupation 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
[2025-01-05] VITALS (267 sets, daily range): BP systolic 75–135; BP diastolic 51–109; PULSE 73–227; RESP 16–20; TEMP 36.4–37.7; O2SAT 95–100
[2025-01-05] MEDS: fentaNYL CITRATE INJ (*CRX) 100 MCG/2 ML VIAL 50 MCG IV PUSH ×2 (01:16→07:36)
[2025-01-05] MEDS: fentaNYL CITRATE INJ (*CRX) 100 MCG/2 ML VIAL IV PUSH ×2 (02:26→08:20)
[2025-01-05] MEDS: LACTATED RINGERS 1,000 ML 125 ML IV CONT ×3 (05:28→13:36)
[2025-01-05] MEDS: OXYTOCIN 30 UNITS/NS 500 ML 30 UNITS/500 ML BAG 6 UNITS IV CONT (05:28)
--- NOTE | 2025-01-05 07:19 | P.HP_ITS ---
H&P: HPI History of Present Illness Date/Time: 01/05/25 07:20 Chief Complaint: elective IOL Narrative: Shelbi is a 19yo @ 39.2wks who presented for elective IOL last night. She reports good movement. Irregular contractions. No vaginal bleeding or leakage of fluid. She has had regular care. She is s/p cervidil. Her is complicated by: - CMV/parvo non-immune - Anemia; hgb 10 Review of Systems Constitutional: Constitutional: Denies chills, Denies fever(s) and Denies headache(s) Eyes: Eyes: Denies change in vision ENT: Denies headache(s) Cardiovascular: Cardiovascular: Denies chest pain and Denies dyspnea Respiratory: Respiratory: Denies dyspnea Genitourinary: Genitourinary: Denies abnormal vaginal bleeding and Denies vaginal discharge Neurologic: Denies headache(s) Psychiatric: Psychiatric: Denies anxiety and Denies depression [facility] Past Medical History Medical History Suppression of menses Encounter for screening examination for sexually transmitted disease Anxiety and depression Surgical History Surgical History Hx of appendectomy Family History Family History Grandparent Breast cancer paternal great grandmother Social History Social History Smoking status: Former smoker Tobacco type: e-cigarettes/vaping Second hand tobacco smoke exposure: No Smoking end date: 05/10/25 Alcohol intake: never Substance use: never Substance use type: does not use Do You Feel Safe in your Home?: Yes Lack of Transportation: No Lack of Food: Never True Current Housing: I Have Housing Concerned About Future Housing: No Difficulty Paying Gas/Electric Bills: No Difficulty Paying for Meds: No Currently Unemployed: No Education: High School Diploma/GED Difficulty w/ Childcare or Family Care: No Living arrangements: with friend(s) Additional living arrangements comments: parents Occupation/Education: occupation 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 Gender identity (if verbalized by the patient): Female Sexual Orientation (if Verbalized by the Patient): Straight or Heterosexual Spiritual care concerns: No Meds Home Medications and Allergies Home Medications ?Medication ?Instructions ?Recorded ?Confirmed ?Type doxylamine succinate 25 mg tablet 12.5 mg (1/2 x 25 mg) PO TID #90 05/20/24 01/04/25 Rx (Unisom (doxylamine)) tabs pyridoxine (vitamin B6) 25 mg 25 mg PO TID #120 tabs 05/20/24 01/04/25 Rx tablet ferrous sulfate 325 mg (65 mg 325 mg PO DAILY 11/05/24 01/04/25 History iron) tablet (Feosol) famotidine 20 mg tablet (Pepcid) 20 mg PO DAILY 12/02/24 01/04/25 History Allergies Allergy/AdvReac Type Severity Reaction Status Date / Time No Known Allergies Allergy Verified 01/04/25 18:51 Exam Const: General: cooperative, no acute distress and obese Nutritional Appearance: obese Orientation/consciousness: patient oriented x3 Resp: Effort & Inspection: normal respiratory effort Cardio: Rate: regular rate GI: GI Palp: No abdominal tenderness : Other: FHT's: 1_0's/ mod aishwarya/ + accels/ no decels - cat 1 TOCO: ctxs q2min Cervix: /60/-3 Membranes: intact Presentation: cephalic Skin: General skin exam: normal color Neuro: General: patient oriented x3 Extrem: General: normal to inspection Psych: Appearance: grossly normal Affect: normal affect Attitude: cooperative Assessment and Plan Assessment and plan (1) Encounter for elective induction of labor: Code(s): Z34.90 - Encounter for supervision of normal , unspecified, unspecified trimester Status: Acute Plan - Admitted overnight for induction of labor; risks and benefits discussed - s/p cervidil overnight; cervix unfavorable - Cook balloon placed @ 0735 w/ 60/60cc of fluid - High dose pitocin per protocol - Continuous monitoring - GBS neg - Anesthesia consult PRN pain
--- NOTE | 2025-01-05 14:18 | PM.OBPNLAB ---
Pain Control Date/time seen: 01/05/25 14:18 Pain control: epidural Pelvic Exam Dilation (cm): 4 Effacement (%): 90 station: -2 Amniotic membrane status: Ruptured (AROM, clear 1412) Contractions Monitor mode: External Contraction frequency: 2 (-4) Status status: Category l Assessment and Plan Pitocin rate (mU/min): 6 Assessment: induction ongoing Plan: continuous present management
[2025-01-05] MEDS: CALCIUM CARBONATE (TUMS) 500 MG (200 MG ELEMENTAL) PO (19:48)
[2025-01-05] MEDS: FAMOTIDINE 20 MG/2 ML VIAL IV PUSH (19:50)
--- NOTE | 2025-01-05 20:00 | PM.OBPNLAB ---
Pain Control Date/time seen: 01/05/25 20:00 Pain control: epidural Pelvic Exam Dilation (cm): 5 Effacement (%): 70 station: -2 Amniotic membrane status: Ruptured (AROM, clear 1412) Contractions Monitor mode: External Contraction frequency: 2 (-4) Contraction pattern: Regular Status status: Category l Assessment and Plan Pitocin rate (mU/min): 18 Assessment: induction ongoing Plan: continuous present management
[2025-01-06] VITALS (102 sets, daily range): BP systolic 81–140; BP diastolic 46–103; PULSE 74–202; RESP 14–18; TEMP 36.4–37.7; O2SAT 86–100
[2025-01-06] MEDS: LACTATED RINGERS 1,000 ML 125 ML IV CONT (05:41)
--- NOTE | 2025-01-06 07:34 | PM.OBPNLAB ---
Pain Control Date/time seen: 01/06/25 07:34 Pain control: epidural (but not working well) Pelvic Exam Dilation (cm): 8 Effacement (%): 80 station: 0 Amniotic membrane status: Ruptured (AROM, clear 1412) Contractions Monitor mode: Internal Contraction pattern: Regular Status status: Category l Assessment and Plan Assessment: active labor Comments: - epidural to be replaced due to uncontrolled pain - active labor has been protracted; but giving pitocin break (got to 30) and will restart after epidural replaced - if not delivered by noon will proceed with pLTCS
[2025-01-06] MEDS: AMPICILLIN SODIUM 2 GM in SODIUM CHLORIDE 0.9% IV 100 ML 200 ML IVPB (08:25)
--- NOTE | 2025-01-06 11:23 | S_PTH ---
PATIENT: Shelbi Miller LOC: [facility] U#:[id number] AGE/SX: 19/F ROOM: 280 RE01/04/[address]: Karla Sawant MD : 2005 BED: 00 DIS: 01/08/2025 SPEC #: [id number] RECD: 01/07/25 07:58 STATUS: MARIELLA REQ #: [id number] DESTINEY: 01/06/25 11:[address]: Karla Sawant DEPT: [facility] Surgical RECD BY: Lola Holguin ENTERED: 01/07/25 07:59 SP TYPE: Surgical OTHR DR: UNKNOWN,DOCTOR Tissues: A - Placenta Procedures: Hematoxylin and Eosin Stain Gross and Microscopic Level 5
[2025-01-06] MEDS: OXYTOCIN 30 UNITS/NS 500 ML 30 UNITS/500 ML BAG 999 UNITS IV CONT (11:30)
[2025-01-06] MEDS: LIDOCAINE 1% LOCAL INJ 20 ML VIAL ×2 (11:32→11:40)
--- NOTE | 2025-01-06 11:59 | P.PCNOB_ITS ---
OB - Vaginal Delivery Note Procedure Delivery date: 01/06/25 Events: Elective Induction of Labor Intrapartal Events: Other (prolonged rupture of membranes; s/p ampicillin 2g IV once) Induction method: Per Pitocin Protocol and Other (cook catheter) Delivery augmentation: Rupture of Membranes and Pitocin Delivery monitor: External FHT and Internal Uterine Route of delivery: Episiotomy description: None Laceration Description: Perineal - 2nd Degree Delivery repair: vicryl Specimen: Yes (placenta) Quantitative Blood Loss (ml): 450 Anesthesia type: Epidural (30cc of 1% lido w/o epi) Disposition: Floor Complications: No immediate complications [place] Baby Date of : 01/06/25 Time of : 11:19 Gestational Age by Date: 39 (3) Infant gender: Male presentation: vertex position: Right Occiput Anterior Placenta delivery description: Expressed Cord Vessel Description: 3 Vessels and Delayed Cord Clamping score one minute: 8 score five minutes: 9 Narrative: Shelbi progressed to complete dilation with strong desire to push as her epidural was not working well. She pushed for a little over 1 hour with good maternal effort. She delivered the head over intact perineum. No nuchal cords palpated. She easily delivered the 's shoulders and body without complication. The infant was immediately placed skin to skin and he had spontaneous cry. Delayed cord clamping was performed. The umbilical cord was then doubly clamped and cut by dad. Segment of cord was collected for cord gases. The remaining cord blood was collected for typing. With Pitocin running and gentle downward traction on the cord, the placenta delivered without complications. Bimanual massage was performed and slight atony was noted with a little bit increase of bleeding. She was examined and a large second-degree perineal laceration was identified. Increased bleeding was noted and bimanual massage was once again performed and slight atony with removal clots was performed. Cytotec 800 mcg was placed rectally by the nurse. She was anes thetized with 1% lidocaine without Epinephrine. The second-degree perineal laceration was repaired and the normal fashion using 2-0 Vicryl. Fundal massage was once again performed and slight increase in bleeding was noted therefore bimanual massage with uterine sweep was noted and small amount of clots was removed with good uterine tone was then noted. She will continue on additional Pitocin infusion. Sponge, lap, instrument, and needle counts were correct at the end procedure. Mom and baby were left bonding in the birthing suite in stable condition. Mom's temperature was taken after delivery and she was noted to be 99.3.
[2025-01-06] MEDS: oxyCODONE HCL (*CRX) 5 MG TAB IR PO (12:13)
[2025-01-06] MEDS: OXYTOCIN 30 UNITS/NS 500 ML 30 UNITS/500 ML BAG 125 UNITS IV CONT (12:15)
--- NOTE | 2025-01-06 14:54 | OBPPTRN ---
Patient transferred to post room #280 via wheelchair.. Support person present. Oriented to unit, room, information board, rooming in, admission packet and security measures. Patient verbalizes understanding.
[2025-01-06] MEDS: IBUPROFEN 600 MG TABLET PO (16:36)
[2025-01-06] MEDS: DOCUSATE SODIUM 100 MG CAPSULE PO (16:37)
[2025-01-07 04:00] VITALS: BP 107/65; PULSE 86; RESP 16; TEMP 36.6; O2SAT 99
[2025-01-07 05:08] LABS: Hematocrit 24.6 % (37.0-47.0); Hemoglobin 7.7 g/dL (12.0-15.0); Mean Corpuscular HGB Conc 31.3 g/dl (32-36); Mean Corpuscular Hemoglobin 26.8 pg (26-34); Mean Corpuscular Volume 85.7 fl (80-100); Platelet Count Result 205 k/mm3 (150-375); Red Blood Count 2.87 M/mm3 (4.2-5.4); White Blood Count 15.6 K/mm3 (4.5-10.0)
--- NOTE | 2025-01-07 07:00 | P.PNOB_ITS ---
OB - PN: Subj Subjective Date/time seen: 01/06/25 15:51 Narrative: PPD#1 Shelbi reports doing well today. Her bleeding is gandy dancer. Her pain is controlled. She is tolerating regular diet, voiding, passing gas, and ambulating without issues. She is breast feeding. She would like her son circumcised. OB - PN: Obj Data Labs 01/07/25 04:10 OB - PN A/P Assessment and Plan (1) Normal vaginal delivery of first : Code(s): O80 - Encounter for full-term uncomplicated delivery Status: Acute Plan day: 1 Plan: routine care Comments: - PO pain meds - Regular diet - Ambulation and hydration encouraged - Continue putting baby to breast q2-3hr - Anemia; H/H with appropriate drop; venofer 500mg IV once; repeat cbc tomorrrow Time Spent With Patient Time: Total time spent is greater than 50% in coordination of care (as documented) at patient's floor/unit and/or counseling patient: Review of Systems 2 Constitutional: Constitutional: Denies chills, Denies fever(s) and Denies headache(s) Eyes: Eyes: Denies change in vision ENT: Denies dizziness and Denies headache(s) Cardiovascular: Cardiovascular: Denies chest pain, Denies palpitations and Denies dyspnea Respiratory: Respiratory: Denies cough and Denies dyspnea Gastrointestinal: Gastrointestinal: Denies nausea and Denies vomiting Neurologic: Denies dizziness and Denies headache(s) Endocrine: Endocrine: Denies palpitations Exam 2 Const: General: cooperative, comfortable and no acute distress O rientation/consciousness: patient oriented x3 Resp: Effort & Inspection: normal respiratory effort Auscultation: clear to auscultation bilaterally Cardio: Rate: regular rate GI: Inspection: non-distended GI Palp: No abdominal tenderness and Yes Soft to palpation Auscultation: normal bowel sounds : Other: fundus firm Skin: General skin exam: normal color Neuro: General: patient oriented x3 Extrem: General: normal to inspection Psych: Appearance: grossly normal Affect: normal affect Attitude: c ooperative
[2025-01-07 08:45] VITALS: BP 111/71; PULSE 82; RESP 18; TEMP 36.9; O2SAT 98
[2025-01-07] MEDS: DOCUSATE SODIUM 100 MG CAPSULE PO ×2 (09:10→18:06)
[2025-01-07] MEDS: MULTIVIT/MIN/PREN/FOL AC/IRON TABLET 1 TAB PO (09:10)
[2025-01-07] MEDS: FAMOTIDINE 20 MG TABLET PO (09:11)
[2025-01-07] MEDS: IRON SUCROSE COMPLEX 400 MG, IRON SUCROSE COMPLEX 100 MG in SODIUM CHLORIDE 0.9% IV 250 ML 78.57 MG IVPB (09:11)
--- NOTE | 2025-01-07 17:42 | PC.NURSE ---
Breast pump provided due to maternal request. Instructions given on cleaning, care, usage, that there should be no pain, pumping schedule for milk production, collection, and storage of human milk. Patient was assessed for correct placement, flange size, to pump for comfort and nipple stretching/stimulation for adequate milk production every 3 hours (8 times in 24 hours) 1-2 times at night. Parents are encouraged to record the pumping schedule on the feeding sheet.?Mother voiced understanding of the education shared along with mom/baby guide and the pump measurement, flange fit handout for additional resource information. Reported to the Primary RN.
[2025-01-07 19:30] VITALS: BP 116/75; PULSE 80; RESP 16; TEMP 36.6; O2SAT 99
[2025-01-08] MEDS: IBUPROFEN 600 MG TABLET PO (04:00)
[2025-01-08 04:49] LABS: Hematocrit 25.4 % (37.0-47.0); Hemoglobin 8.0 g/dL (12.0-15.0); Mean Corpuscular HGB Conc 31.5 g/dl (32-36); Mean Corpuscular Hemoglobin 26.9 pg (26-34); Mean Corpuscular Volume 85.5 fl (80-100); Platelet Count Result 261 k/mm3 (150-375); Red Blood Count 2.97 M/mm3 (4.2-5.4); White Blood Count 14.1 K/mm3 (4.5-10.0)
--- NOTE | 2025-01-08 07:18 | P.DS_ITS ---
DS: Admitting Diagnosis Discharge Date 01/08/25 Admitting Diagnosis Elective IOL DS: Discharge Diagnosis Discharge Diagnosis (1) Normal vaginal delivery of first : Code(s): O80 - Encounter for full-term uncomplicated delivery Status: Acute (2) Anemia: Code(s): D64.9 - Anemia, unspecified Status: Acute OB - DS: Summary OB Procedures : NST and Ultrasound OB Procedures Intrapartum: Spontaneous Vag Delivery OB Procedures: : Other (Venofer 500mg IV once) Peripartum Data Infant Delivery Method: Natural Vaginal Laceration Description: Perineal - 2nd Degree Episiotomy description: None complications: none [place] 1: Gender: Male Disposition of : home Status at Discharge Functional status at discharge: independent ambulation Overall status at discharge: patient is back to baseline Time Spent with Patient Time attestation: Total time spent providing and/or coordinating discharge services: Exam Const: General: cooperative, healthy appearing, comfortable and no acute distress Orientation/consciousness: patient oriented x3 Resp: Effort & Inspection: normal respiratory effort Auscultation: clear to auscultation bilaterally Cardio: Rate: regular rate GI: Inspection: non-distended GI Palp: No abdominal tenderness and Yes Soft to palpation Auscultation: normal bowel sounds : Other: fundus firm Skin: General skin exam: normal color Neuro: General: patient oriented x3 Extrem: General: normal to inspection Psych: Appearance: grossly normal Affect: normal affect Attitude: cooperative DS: Data Data Completed and Pending Pending studies at discharge: Pending at discharge 01/06/25 11:23 Surgical [PTH] Routine Labs on day of discharge: Labs from last 24 hours 01/07/25 04:10 WBC 15.6 H RBC 2.87 L Hgb 7.7 L Hct 24.6 L MCV 85.7 MCH 26.8 MCHC 31.3 L RDW 16.8 H Plt Count 205 MPV 10.5 H Discharge Plan Discharge Attending physician on discharge: Karla Sawant Discharging Clinician: Karla Sawant Anticipated Discharge Date/Time: 01/08/25 07:19 Patient Disposition: Home Activity: may shower and pelvic rest Diet: regular Patient Instructions: Vaginal Delivery (DC) Patient Language: Azeri Stand Alone Forms: General Discharge Information Follow-up/Referrals: Karla Sawant MD [Physician, [employer] SCIENTIST] - 4 Weeks Discharge Medications: New acetaminophen 325 mg Tablet 650 mg PO Q6H PRN (Reason: Mild Pain (1-3) Or Headache) Qty: 60 0RF docusate sodium 100 mg Capsule 100 mg PO BID PRN (Reason: Constipation) Qty: 90 0RF ibuprofen 600 mg Tablet 600 mg PO Q6H PRN (Reason: Cramping) Qty: 40 0RF Continued ferrous sulfate [Feosol] 325 mg (65 mg iron) tablet 325 mg PO DAILY famotidine [Pepcid] 20 mg tablet 20 mg PO DAILY Discontinued Unisom (doxylamine) 25 mg tablet 12.5 mg PO TID Qty: 90 1RF pyridoxine (vitamin B6) 25 mg tablet 25 mg PO TID Qty: 120 1RF Date of admission: 01/04/25 15:50 Primary Care Provider: UNKNOWN,DOCTOR Admitting Provider: Karla Sawant Attending physician on admission: Karla Sawant Condition: Stable
[2025-01-08 08:20] VITALS: BP 126/66; PULSE 96; RESP 18; TEMP 36.2; O2SAT 98
[2025-01-08] MEDS: FAMOTIDINE 20 MG TABLET PO (09:02)
[2025-01-08] MEDS: DOCUSATE SODIUM 100 MG CAPSULE PO (09:02)
[2025-01-08] MEDS: MULTIVIT/MIN/PREN/FOL AC/IRON TABLET 1 TAB PO (09:02)
--- NOTE | 2025-01-08 10:22 | PC.NURSE ---
Patient viewed the discharge video Mother & Baby Care, The First Two Weeks. Patient was given the opportunity and encouraged to ask questions. Patient verbalized understanding of information shared and has been given the mother/baby guide for home reference.
[2025-01-10 11:09] VITALS: BP 114/76; PULSE 74; RESP 18; TEMP 36.7; O2SAT 99
== END 2025-01-08 12:23 | disposition home or self-care (01) | DRG 806 ==
LOC: ANHLDR 15:57 → ANHOB2 01-06 14:59
PROVIDERS: Admitting Provider Obstetrics & Gynecology; Visit Provider Obstetrics & Gynecology
DX: O42.02 Full-term premature rupture of membranes, onset of labor within 24 hours of rupture (principal); O63.9 Long labor, unspecified; Z37.0 Single live birth; Z3A.39 39 weeks gestation of pregnancy; O99.02 Anemia complicating childbirth; D64.9 Anemia, unspecified; O70.1 Second degree perineal laceration during delivery; Z87.891 Personal history of nicotine dependence
CPT/HCPCS: 36415; 59025; 85025; 85027; 86593; 86703; 86850; 86900; 86901; 88307; A9270; G0432; J0290; J1756; J2003; J2590; J2795; J3010; J7050; J7120

== ENCOUNTER 2025-01-17 16:16 | Emergency (ER) | payer OTHER, MEDICAID, SELFPAY ==
--- NOTE | ~2025-01-17 | XR_ITS ---
EXAMINATION: XR chest 2V, 01/17/2025 18:12 CDT HISTORY: fever COMPARISON: No comparisons available. Technique: 2 views obtained. Findings: The lungs are clear, no effusion. No pneumothorax. Heart is normal size. Mediastinal and hilar contours are within normal limits. Bony thorax no acute abnormality. Impression: No acute cardiopulmonary abnormality. Reviewed, dictated and finalized at location A. Impression: No acute cardiopulmonary abnormality.
--- OUTSIDE RECORDS SUMMARY | 2025-01-17 16:17 | XMS_ITS | Clinical Summary ---
Author Organization [facility] Address [address] [place] [address] Phone Care Team Providers Care Telephone Assembler Name Role Phone Meghan Cedillo MD Primary [...] II [employer] CHOICE POS II Care Teams Telephone Assembler Relationship Specialty Start Date End Date Meghan Cedillo MD PCP - General Pediatrics 08/16/21
--- OUTSIDE RECORDS SUMMARY | 2025-01-17 16:17 | XMS_ITS | Clinical Summary ---
Author Organization [facility] Address [address] [place] [address] Care Team Providers Care Flavorer Name Role Phone Meghan Jarrett MD Primary Care Provider [phone] Source Comments [facility],non-owned Affiliates and Associated Physician Practices is amultiple site organization consisting of ambulatory clinics and hospital sitesin [place], [place], [place] and [place]. This disclosure is being madepursuant to the Care Everywhere program and may not contain all information available regarding this patient. Last updated 18.[facility] Allergies No known active allergies Medications * [...] on file Legal Sex Female 5:43 AM UPTWIST SPINNER Gender Identity Not on file Sexual Orientation Not on file Last Filed Vital Signs Vital Sign Reading Time Taken Comments Blood Pressure - - Pulse - - Temperature - - Respiratory Rate - - Oxygen Saturation - - Inhaled Oxygen Concentration - - Weight 56.7 kg (125 lb) 05/01/2017 2:13 PM UPTWIST SPINNER Height 167.5 cm (5' 5.95) 05/01/2017 2:13 PM CS T Body Mass Index 20.21 05/01/2017 2:13 PM UPTWIST SPINNER Plan of Treatment Health Maintenance Due Date [...] patient's age to complete this topic [place] [address] [place] [address] MEDICAID - [place] SELF PAY NO INSURANCE Member Subscriber Plan / Payer (Ef fective for All Dates) Name:Shelbi Carrillo Member ID:Not on file Relation to Subscriber:Not on file Name:SHELBI CARRILLO Subscriber ID:Not on file (Home) Address: [address] [place] [address] Payer ID:Not on file Group ID:Not on file Type:Self Pay Address: [place], [place] [employer] Care Teams Flavorer Relationship Specialty Start Date End Date Meghan Jarrett MD PCP - General Pediatrics 05/01/17
--- OUTSIDE RECORDS SUMMARY | 2025-01-17 16:17 | XMS_ITS | Clinical Summary ---
Author Organization [facility] Address [address] [place] [phone] Phone Care Team Providers Care Hris Manager Name Role Phone Provider, None Primary [...] Comments Blood Pressure 92/60 06/03/2017 11:27 AM CHRISTIAN SCIENCE HEALER Pulse 100 06/03/2017 11:27 AM CHRISTIAN SCIENCE HEALER Temperature 36.9 C (98.4 F) 06/03/2017 11:27 AM CHRISTIAN SCIENCE HEALER Respiratory Rate - - Oxygen Saturation 98% 06/03/2017 11:27 AM CHRISTIAN SCIENCE HEALER Inhaled Oxygen Concentration - - Weight 57.2 kg (126 lb) 06/03/2017 11:27 AM CHRISTIAN SCIENCE HEALER Height 167.6 cm (5' 6) 06/03/2017 11:27 AM CHRISTIAN SCIENCE HEALER Body Mass Index 20.34 06/03/2017 11:27 AM CHRISTIAN SCIENCE HEALER Plan of Treatment Health Maintenance Due Date [...] age to complete this topic Care Teams Hris Manager Relationship Specialty Start Date End Date Provider, None [place] PCP - General 06/03/17
[2025-01-17 16:19] VITALS: BP 117/79; PULSE 126; RESP 18; TEMP 37.1; O2SAT 98
[2025-01-17 16:57] VITALS: TEMP 39.4
[2025-01-17] MEDS: ACETAMINOPHEN 325 MG TABLET 650 MG PO (17:18)
[2025-01-17] MEDS: SODIUM CHLORIDE 0.9% IV 1,000 ML 999 ML IV CONT (17:19)
[2025-01-17 17:24] LABS: Hematocrit 29.7 % (37.0-47.0); Hemoglobin 9.3 g/dL (12.0-15.0); Immature Granulocyte Percent A 0.7 % (0-0.5); Lymphocytes Absolute Auto 1.22 K/mm3 (0.9-3.2); Mean Corpuscular HGB Conc 31.3 g/dl (32-36); Mean Corpuscular Hemoglobin 26.5 pg (26-34); Mean Corpuscular Volume 84.6 fl (80-100); Nucleated Red Blood Cells Absolute Auto 0.000 K/mm3 (0.0-0.012); Nucleated Red Blood Cells Perc 0.0 % (0.0-0.2); Platelet Count Result 372 k/mm3 (150-375); Red Blood Count 3.51 M/mm3 (4.2-5.4); White Blood Count 9.2 K/mm3 (4.5-10.0)
[2025-01-17 17:38] LABS: Alanine Aminotransferase 13 U/L (6-35); Albumin Level 3.7 g/dL (3.5-5.1); Alkaline Phosphatase 139 U/L (38-126); Anion Gap 8 mmol/L (4-12); Aspartate Amino Transferase 25 U/L (14-36); Bilirubin,Total 0.6 mg/dL (0.2-1.3); Blood Urea Nitrogen 11 mg/dL (7-17); Calcium 8.0 mg/dL (8.4-10.2); Carbon Dioxide 23 mmol/L (22-30); Chloride 106 mmol/L (98-107); Estimated CRCL calculation 103 ml/min; Estimated Glomerular Filt Rate > 60; Glucose 96 mg/dL (65-110); Potassium 3.3 mmol/L (3.4-5.0); Sodium 137 mmol/L (137-145); Total Protein 6.9 g/dL (6.3-8.2)
[2025-01-17 17:54] LABS: Add Urine Microscopic? YES; Appearance Urine Turbid (Clear); Glucose Urine UA Negative (Negative); Leukocyte Esterase Ur 3+ LEU/UL (Negative); Nitrate Urine Negative (Negative); Non Pathogenic Casts 0-2; Specific Grav Ur 1.024 (1.001-1.035)
[2025-01-17 18:00] LABS: Influenza A QL RT-PCR Negative (Negative); Influenza B QL RT-PCR Negative (Negative); RSV RNA, RT-PCR Negative (Negative); SARS-CoV-2 RNA PCR Negative (Negative)
[2025-01-17 18:09] LABS: BEDSIDEPREGUCG Negative (Negative)
--- NOTE | 2025-01-17 18:10 | ED.GENADULT ---
HPI - General Adult General Chief complaint: Fever Stated complaint: fever, delivered 01/06/25 Time Seen by Provider: 01/17/25 16:56 History of Present Illness HPI narrative: Patient is a 19-year-old female who presents ER with fever. First had a fever today but has been having sweats and chills over last few days as well as body aches. Has some groin discomfort. No urinary frequency urgency. Recently had a baby on 01/06/2025. She had a grade 2 tear that was repaired. No breast pain or redness of the breast. She continues to have some vaginal bleeding. Related Data Home Medications ?Medication ?Instructions ?Recorded ?Confirmed ?Last Taken ?Type ferrous sulfate 325 mg (65 mg 325 mg PO DAILY 11/05/24 01/04/25 Unknown History iron) tablet (Feosol) famotidine 20 mg tablet (Pepcid) 20 mg PO DAILY 12/02/24 01/04/25 01/03/25 History Allergies Allergy/AdvReac Type Severity Reaction Status Date / Time No Known Allergies Allergy Verified 01/17/25 18:32 Review of Systems Review of Systems: All systems reviewed & are unremarkable except as noted in HPI and below Constitutional: Constitutional: Reports no additional constitutional complaints ENT: Reports system reviewed and no additional complaints, except as documented Cardiovascular: Cardiovascular: Reports no additional cardiovascular complaints Respiratory: Respiratory: Reports no additional respiratory complaints Gastrointestinal: Gastrointestinal: Reports no additional gastrointestinal complaints Genitourinary: Genitourinary: Reports no additional female genitourinary complaints [facility] Past Medical History Medical History Suppression of menses Encounter for screening examination for sexually transmitted disease Anxiety and depression Surgical History Surgical History Hx of appendectomy Family History Family History Grandparent Breast cancer paternal great grandmother Social History Social History Smoking status: Former smoker Tobacco type: e-cigarettes/vaping Second hand tobacco smoke exposure: No Smoking end date: 05/10/25 Alcohol intake: never Substance use: never Substance use type: does not use Do You Feel Safe in your Home?: Yes Lack of Transportation: No Lack of Food: Never True Current Housing: I Have Housing Concerned About Future Housing: No Difficulty Paying Gas/Electric Bills: No Difficulty Paying for Meds: No Currently Unemployed: No Education: High School Diploma/GED Difficulty w/ Childcare or Family Care: No Living arrangements: with friend(s) Additional living arrangements comments: parents Occupation/Education: occupation 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 HEAD: Normocephalic, atraumatic. ENT: Mucous membranes moist. CHEST: Clear to auscultation. No respiratory distress. HEART: Tachycardic and regular. Normal peripheral pulses. ABDOMEN: Soft, nontender, nondistended. EXTREMITIES: Normal range of motion. No edema. SKIN: Warm, dry, no rash. NEURO: Alert and oriented x3. PSYCH: Normal mood and affect. Course Course Emergency Course: Patient resting comfortably. Informed of results. IV antibiotics provided for significant urinary infection. No flu or COVID. No pneumonia. Appropriate for discharge home. Vital Signs Vital signs: Vital Signs Temperature 98.7 F 01/17/25 16:19 Pulse Rate 126 H 01/17/25 16:19 Respiratory Rate 18 01/17/25 16:19 Blood Pressure 117/79 01/17/25 16:19 Pulse Oximetry 98 01/17/25 16:19 Temperature 103.0 F H 01/17/25 16:57 Pulse Rate 126 H 01/17/25 16:19 Respiratory Rate 18 01/17/25 16:19 Blood Pressure 117/79 01/17/25 16:19 Pulse Oximetry 98 01/17/25 16:19 Medical Decision Making Vital Signs Vital Signs: Vital Signs Temperature 98.7 F 01/17/25 16:19 Pulse Rate 126 H 01/17/25 16:19 Respiratory Rate 18 01/17/25 16:19 Blood Pressure 117/79 01/17/25 16:19 Pulse Oximetry 98 01/17/25 16:19 Temperature 103.0 F H 01/17/25 16:57 Pulse Rate 126 H 01/17/25 16:19 Respiratory Rate 18 01/17/25 16:19 Blood Pressure 117/79 01/17/25 16:19 Pulse Oximetry 98 01/17/25 16:19 Lab Data 01/17/25 17:16 01/17/25 17:16 Labs: Lab Results 01/17/25 01/17/25 01/17/25 Range/Units 17:16 17:17 17:41 WBC 9.2 (4.5-10.0) K/mm3 RBC 3.51 L (4.2-5.4) M/mm3 Hgb 9.3 L (12.0-15.0) g/dL Hct 29.7 L (37.0-47.0) % MCV 84.6 (80-100) fl MCH 26.5 (26-34) pg MCHC 31.3 L (32-36) g/dl RDW 16.9 H (11.5-14.5) % Plt Count 372 (150-375) k/mm3 MPV 9.1 (7.4-10.4) fl Immature Gran % (Auto) 0.7 H (0-0.5) % Neut % (Auto) 80.8 H (45.5-73.1) % Lymph % (Auto) 13.3 L (18.3-44.2) % Nolan % (Auto) 4.3 (2.6-8.5) % Eos % (Auto) 0.5 (0-4.4) % Baso % (Auto) 0.4 (0.2-1.2) % Lymph # (Auto) 1.22 (0.9-3.2) K/mm3 Nolan # (Auto) 0.4 (0.1-0.6) K/mm3 Eos # (Auto) 0.1 (0-0.3) K/mm3 Baso # (Auto) 0.0 (0.0-0.1) K/mm3 Abs Immat Gran (auto) 0.06 H (0.00-0.031) K/mm3 Absolute Neuts (auto) 7.4 H (1.3-6.7) K/mm3 Absolute Nucleated RBC 0.000 (0.0-0.012) K/mm3 Nucleated RBC % 0.0 (0.0-0.2) % Sodium 137 (137-145) mmol/L Potassium 3.3 L (3.4-5.0) mmol/L Chloride 106 (98-107) mmol/L Carbon Dioxide 23 (22-30) mmol/L Anion Gap 8 (4-12) mmol/L BUN 11 (7-17) mg/dL Creatinine 0.70 (0.7-1.0) mg/dL Estim Creat Clear Calc 103 ml/min Estimated GFR > 60 (59 - ) Glucose 96 (65-110) mg/dL Lactic Acid 0.9 (0.7-2.0) mmol/L Calcium 8.0 L (8.4-10.2) mg/dL Total Bilirubin 0.6 (0.2-1.3) mg/dL AST 25 (14-36) U/L ALT 13 (6-35) U/L Alkaline Phosphatase 139 H (38-126) U/L Total Protein 6.9 (6.3-8.2) g/dL Albumin 3.7 (3.5-5.1) g/dL Urine Color Yellow (Yellow) Urine Appearance Turbid H (Clear) Urine pH 7.5 (5.0-9.0) Ur Specific [place] 1.024 (1.001-1.035) Urine Protein 1+ H (Negative) mg/dL Urine Glucose (UA) Negative (Negative) mg/dL Urine Ketones Trace H (Negative) mg/dL Ur Blood (Man) 3+ H (Negative) Urine Nitrate Negative (Negative) Urine Bilirubin Negative (Negative) Urine Urobilinogen 2.0 H (<2.0) mg/dL Leukocyte Esterase Rfl 3+ H (Negative) JARROD/UL Urine RBC 6-10 H (0-2) /hpf Urine WBC >100 H (0-3) /hpf Ur Squamous Epith Cells None seen (Few) /hpf Urine Bacteria 3+ H /hpf Urine Casts 0-2 POC Urine HCG, Qual (Negative) Influenza A (RT-PCR) Negative (Negative) Influenza B (RT-PCR) Negative (Negative) RSV (RT-PCR) Negative (Negative) SARS-CoV-2 RNA (RT-PCR) Negative (Negative) 01/17/ Range/Units 18:07 WBC (4.5-10.0) K/mm3 RBC (4.2-5.4) M/mm3 Hgb (12.0-15.0) g/dL Hct (37.0-47.0) % MCV (80-100) fl MCH (26-34) pg MCHC (32-36) g/dl RDW (11.5-14.5) % Plt Count (150-375) k/mm3 MPV (7.4-10.4) fl Immature Gran % (Auto) (0-0.5) % Neut % (Auto) (45.5-73.1) % Lymph % (Auto) (18.3-44.2) % Nolan % (Auto) (2.6-8.5) % Eos % (Auto) (0-4.4) % Baso % (Auto) (0.2-1.2) % Lymph # (Auto) (0.9-3.2) K/mm3 Nolan # (Auto) (0.1-0.6) K/mm3 Eos # (Auto) (0-0.3) K/mm3 Baso # (Auto) (0.0-0.1) K/mm3 Abs Immat Gran (auto) (0.00-0.031) K/mm3 Absolute Neuts (auto) (1.3-6.7) K/mm3 Absolute Nucleated RBC (0.0-0.012) K/mm3 Nucleated RBC % (0.0-0.2) % Sodium (137-145) mmol/L Potassium (3.4-5.0) mmol/L Chloride (98-107) mmol/L Carbon Dioxide (22-30) mmol/L Anion Gap (4-12) mmol/L BUN (7-17) mg/dL Creatinine (0.7-1.0) mg/dL Estim Creat Clear Calc ml/min Estimated GFR (59 - ) Glucose (65-110) mg/dL Lactic Acid (0.7-2.0) mmol/L Calcium (8.4-10.2) mg/dL Total Bilirubin (0.2-1.3) mg/dL AST (14-36) U/L ALT (6-35) U/L Alkaline Phosphatase (38-126) U/L Total Protein (6.3-8.2) g/dL Albumin (3.5-5.1) g/dL Urine Color (Yellow) Urine Appearance (Clear) Urine pH (5.0-9.0) Ur Specific [place] (1.001-1.035) Urine Protein (Negative) mg/dL Urine Glucose (UA) (Negative) mg/dL Urine Ketones (Negative) mg/dL Ur Blood (Man) (Negative) Urine Nitrate (Negative) Urine Bilirubin (Negative) Urine Urobilinogen (<2.0) mg/dL Leukocyte Esterase Rfl (Negative) JARROD/UL Urine RBC (0-2) /hpf Urine WBC (0-3) /hpf Ur Squamous Epith Cells (Few) /hpf Urine Bacteria /hpf Urine Casts POC Urine HCG, Qual Negative (Negative) Influenza A (RT-PCR) (Negative) Influenza B (RT-PCR) (Negative) RSV (RT-PCR) (Negative) SARS-CoV-2 RNA (RT-PCR) (Negative) Imaging Data Radiologist's impression: ITS Impressions Chest X-Ray 01/17/25 18:40 Impression: No acute cardiopulmonary abnormality. Discharge Plan Discharge Clinical Impression: UTI (urinary tract infection) Patient Disposition: Still a Patient Condition: Stable Instructions: Urinary Tract Infection in Women (ED) Additional Instructions: You should return to the emergency department if you develop severe nausea and vomiting and are unable to keep liquids down, if you develop severe back/flank or stomach pain, or if your symptoms are not clearly improving at home. Patient Language: Cymro Prescriptions: New cephalexin 500 mg capsule 500 mg PO Q12H Qty: 14 0RF ondansetron 4 mg tablet,disintegrating 4 mg PO Q6H PRN (Reason: nausea and vomiting) Qty: 10 0RF No Action ferrous sulfate [Feosol] 325 mg (65 mg iron) tablet 325 mg PO DAILY famotidine [Pepcid] 20 mg tablet 20 mg PO DAILY acetaminophen 325 mg Tablet 650 mg PO Q6H PRN (Reason: Mild Pain (1-3) Or Headache) Qty: 60 0RF docusate sodium 100 mg Capsule 100 mg PO BID PRN (Reason: Constipation) Qty: 90 0RF ibuprofen 600 mg Tablet 600 mg PO Q6H PRN (Reason: Cramping) Qty: 40 0RF Follow-up/Referrals: UNKNOWN,DOCTOR [Primary Care Provider]
[2025-01-17] MEDS: cefTRIAXone 1 GM in SODIUM CHLORIDE 0.9% IV 50 ML 100 ML IVPB (18:29)
[2025-01-17 18:30] VITALS: BP 126/86; PULSE 91; RESP 18; TEMP 37.7; O2SAT 97
[2025-01-17] MEDS: KETOROLAC 30 MG/ML VIAL (*BKC) IV PUSH (18:46)
[2025-01-17 19:55] VITALS: BP 100/69; PULSE 104; RESP 20; TEMP 37.1; O2SAT 96
== END 2025-01-17 19:57 | disposition home or self-care (01) ==
PROVIDERS: Emergency Provider Emergency Medicine
DX: O86.20 Urinary tract infection following delivery, unspecified (principal); N39.0 Urinary tract infection, site not specified; Z20.822 Contact with and (suspected) exposure to COVID-19; Z87.891 Personal history of nicotine dependence
CPT/HCPCS: 36415; 71046; 80053; 81001; 81025; 83605; 85025; 87086; 87186; 87637; 96361; 96365; 96375; 99284; A9270; J0696; J1885; J7030

== ENCOUNTER 2025-02-11 15:34 | Outpatient (CLI) | payer OTHER, MEDICAID, SELFPAY ==
--- OUTSIDE RECORDS SUMMARY | 2025-02-11 15:37 | XMS_ITS | Clinical Summary ---
Author Organization [facility] Address [address] [place] [phone] Phone Care Team Providers Care Image Archivist Name Role Phone Provider, None Primary Care [...] Comments Blood Pressure 92/60 06/03/2017 11:27 AM DAIRY PRODUCTS MAKER Pulse 100 06/03/2017 11:27 AM DAIRY PRODUCTS MAKER Temperature 36.9 C (98.4 F) 06/03/2017 11:27 AM DAIRY PRODUCTS MAKER Respiratory Rate - - Oxygen Saturation 98% 06/03/2017 11:27 AM DAIRY PRODUCTS MAKER Inhaled Oxygen Concentration - - Weight 57.2 kg (126 lb) 06/03/2017 11:27 AM DAIRY PRODUCTS MAKER Height 167.6 cm (5' 6) 06/03/2017 11:27 AM DAIRY PRODUCTS MAKER Body Mass Index 20.34 06/03/2017 11:27 AM DAIRY PRODUCTS MAKER Plan of Treatment Health Maintenance Due Date [...] age to complete this topic Care Teams Image Archivist Relationship Specialty Start Date End Date Provider, None [place] PCP - General 06/03/17
--- OUTSIDE RECORDS SUMMARY | 2025-02-11 15:37 | XMS_ITS | Clinical Summary ---
Author Organization [facility] Address [address] [place] [address] Phone Care Team Providers Care French Comber Name Role Phone Meghan Cedillo MD Primary [...] II [employer] CHOICE POS II Care Teams French Comber Relationship Specialty Start Date End Date Meghan Cedillo MD PCP - General Pediatrics 08/16/21
--- OUTSIDE RECORDS SUMMARY | 2025-02-11 15:37 | XMS_ITS | Clinical Summary ---
Author Organization [facility] Address [address] [place] [address] Care Team Providers Care Primary Montessori Teacher Name Role Phone Meghan Jarrett MD Primary Care Provider Source Comments [facility],non-owned Affiliates and Associated Physician Practices is amultiple site organization consisting of ambulatory clinics and hospital sitesin [place], [place], [place] and [place]. This disclosure is being madepursuant to the Care Everywhere program and may not contain all information available regarding this patient. 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 Gender Identity Not on file Sexual Orientation Not on file Last Filed Vital Signs Vital Sign Reading Time Taken Comments Blood Pressure - - Pulse - - Temperature - - Respiratory Rate - - Oxygen Saturation - - Inhaled Oxygen Concentration - - Weight 56.7 kg (125 lb) 05/01/2017 2:13 PM CLAY ARTIST Height 167.5 cm (5' 5.95) 05/01/2017 2:13 PM CS T Body Mass Index 20.21 05/01/2017 2:13 PM CLAY ARTIST Plan of Treatment Health Maintenance Due Date Last Done Comments HIV SCREENING 02/18/2019 HPV VACCINE (1 - 3-dose series) 02/18/2019 CHLAMYDIA/GONORRHEA SCREENING 2020 MENINGOCOCCAL (Group B) VACC INE SHARED DECISION-MAKING (1 of 2 - Standard) 2020 HEPATITIS C SCREENING 02/14/2022 DTAP/TDAP/TD VACCINES (1 - Tdap) 02/18/2023 HEPATITIS B VACCINE (1 of 3 - 19+ 3-dose series) 02/18/2023 DEPRESSION SCREENING 05/21/2024 COVID-19 VACCINE (1 - 2023-2 5 season) 2025 INFLUENZA VACCINE (#1) 2025 ZOSTER VACCINE (1 of 2) 02/18/2054 HIB VACCINE Aged Out No longer eligi ble based on patient's age to complete this topic MENINGOCOCCAL GROUPS A/C/Y/W VACCINE Aged Out No longer eligible b ased on patient's age to complete this topic PNEUMOCOCCAL VACCINE Aged Out No long er eligible based on patient's age to complete this topic Insurance MEDICAID - [place] SELF PAY NO INSURANCE Member Subscriber Plan / Payer (Ef fective for All Dates) Name:Shelbi Carrillo Member ID:Not on file Relation to Subscriber:Not on file Name:SHELBI CARRILLO Subscriber ID:Not on file (Home) Address: [address] [place] [address] Payer ID:Not on file Group ID:Not on file Type:Self Pay Address: [facility] [employer] Care Teams Primary Montessori Teacher Relationship Specialty Start Date End Date Meghan Jarrett MD PCP - General Pediatrics 05/01/17
--- OUTSIDE RECORDS SUMMARY | 2025-02-11 15:37 | XMS_ITS | Clinical Summary ---
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 Gender Identity Not on file Sexual Orientation [...] Meningococcal Vaccine Completed 11/04/2021, 016 Insurance AETNA [facility] HMO [facility] CHOICE PLUS [facility]/PPO Address: [address] [address] [place] [address] [facility] CHOICE PLUS [facility] HMO/PPO Address: [address] [address] [place] [address] [facility] HMO Advance Directives For more information, please contact: [phone] * Full Code (Latest Code Status on File) Date Activated Date Inactivated Comments 08/14/2023 9:39 PM 08/16/2023 12:26 AM Care Teams Finished Cloth Checker Relationship Specialty Start Date End Date Meghan Cedillo MD PCP - General Pediatrics 11/22/16
[2025-02-11 16:28] LABS: Beta HCG Quantitative < 2.39 mIU/ML
== END 2025-02-11 15:35 | disposition home or self-care (01) ==
LOC: ANHLAB 15:35
PROVIDERS: Visit Provider Obstetrics & Gynecology
DX: N92.6 Irregular menstruation, unspecified (principal)
CPT/HCPCS: 36415; 84702